=== PATIENT | female | born 1940 | race Caucasian/White ===

== ENCOUNTER 2020-05-27 07:00 | Outpatient (NON) | payer MEDICARE, SELFPAY ==
[2020-05-28 01:24] LABS: SARS-CoV-2 RNA PCR Negative
== END 2020-05-27 07:01 ==
PROVIDERS: PCP Internal Medicine; Visit Provider Nurse Practitioner
DX: Z20.828 Contact with and (suspected) exposure to other viral communicable diseases (principal); R09.89 Other specified symptoms and signs involving the circulatory and respiratory systems
CPT/HCPCS: 87635; C9803; U0003

== ENCOUNTER 2020-08-08 15:36 | Outpatient (CLI) | payer MEDICARE, SELFPAY | END 2020-08-08 15:37 | disposition home or self-care (01) | LOC: ANHCOVIDVC 15:37 | PROVIDERS: PCP Internal Medicine; Visit Provider Internal Medicine | DX: Z23 Encounter for immunization (principal) | CPT/HCPCS: 0001A; 91300 ==

== ENCOUNTER 2020-08-14 09:20 | Outpatient (CLI) | payer MEDICARE, SELFPAY ==
[2020-08-14 16:08] LABS: Basophils Percent Auto 0.6 % (0.2-1.2); Eosinophils Absolute Auto 0.3 K/mm3 (0-0.3); Eosinophils Percent Auto 4.4 % (0-4.4); Hematocrit 42.6 % (37.0-47.0); Hemoglobin 13.7 g/dL (12.0-15.0); Immature Granulocyte Absolute 0.02 K/mm3 (0.00-0.031); Immature Granulocyte Percent A 0.3 % (0-0.5); Lymphocytes Absolute Auto 1.86 K/mm3 (0.9-3.2); Lymphocytes Percent Auto 26.2 % (18.3-44.2); Mean Corpuscular HGB Conc 32.2 g/dl (32-36); Mean Corpuscular Hemoglobin 30.4 pg (26-34); Mean Corpuscular Volume 94.5 fl (80-100); Mean Platelet Volume 11.5 fl (7.4-10.4); Monocytes Absolute Auto 0.6 K/mm3 (0.1-0.6); Monocytes Percent Auto 8.6 % (2.6-8.5); Neutrophils Absolute Auto 4.3 K/mm3 (1.3-6.7); Neutrophils Percent Auto 59.9 % (45.5-73.1); Platelet Count Result 299 k/mm3 (150-375); Red Blood Count 4.51 M/mm3 (4.2-5.4); Red Cell Distribution Width 12.9 % (11.5-14.5); White Blood Count 7.1 K/mm3 (4.5-10.0)
[2020-08-14 16:19] LABS: Alanine Aminotransferase 17 U/L (4-35); Albumin Level 3.5 g/dL (3.5-5.1); Alkaline Phosphatase 63 U/L (38-126); Anion Gap 5 mmol/L (8-16); Aspartate Amino Transferase 27 U/L (14-36); Bilirubin,Total 0.7 mg/dL (0.2-1.3); Blood Urea Nitrogen 19 mg/dL (7-17); Calcium 8.7 mg/dL (8.4-10.2); Carbon Dioxide 27 mmol/L (22-30); Chloride 108 mmol/L (98-107); Cholesterol 236 mg/dL (0-200); Estimated Glomerular Filt Rate 48; Glucose 85 mg/dL (65-105); HDL Direct 59 mg/dL; Potassium 4.3 mmol/L (3.4-5.0); Sodium 140 mmol/L (137-145); Triglycerides 119 mg/dL (<150)
[2020-08-14 16:29] LABS: LDL Cholesterol Direct 124 mg/dL
== END 2020-08-14 09:21 | disposition home or self-care (01) ==
LOC: ANHWCLAB 09:28
PROVIDERS: PCP Internal Medicine; Visit Provider Clinical Nurse Specialist
DX: I10 Essential (primary) hypertension (principal)
CPT/HCPCS: 36415; 80053; 80061; 85025

== ENCOUNTER 2020-08-29 15:26 | Outpatient (CLI) | payer MEDICARE, SELFPAY | END 2020-08-29 15:27 | disposition home or self-care (01) | LOC: ANHCOVIDVC 15:26 | PROVIDERS: PCP Internal Medicine | DX: Z23 Encounter for immunization (principal) | CPT/HCPCS: 0002A; 91300 ==

== ENCOUNTER 2020-09-20 15:53 | Outpatient (CLI) | payer MEDICARE, SELFPAY ==
--- NOTE | ~2020-09-20 | XR_ITS ---
XR finger 1st RT min 2V DATE: 09/20/2020 17:10 INDICATION: Enlarging nodules of the right thumb TECHNIQUE: 4 views COMPARISON: None FINDINGS: There are nodular areas of soft tissue swelling. There is evidence of chronic benign smooth pressure erosion of the mid to distal shaft and neck of th e proximal phalanx anteriorly and posteriorly . No fracture or dislocation, periosteal reaction or bone destruction is evident. There is osteoarthritic change including mild spurring at the interphalangeal joint of the first digi t. IMPRESSION: Multiple nodular soft tissue lesions of the first digit with evidence of chronic pressure erosion on the proximal phalanx Osteoarthritis Reviewed, dictated and finalized at location A. IMPRESSION: Multiple nodular soft tissue lesions of the first digit with eviden ce of chronic pressure erosion on the proximal phalanx Osteoarthritis
== END 2020-09-20 15:54 | disposition home or self-care (01) ==
LOC: ANHIMG 16:02
PROVIDERS: PCP Internal Medicine; Visit Provider Plastic Surgery
DX: M19.041 Primary osteoarthritis, right hand (principal); M79.89 Other specified soft tissue disorders
CPT/HCPCS: 73140

== ENCOUNTER → 2020-10-09 01:16 | Outpatient (CLI) | payer MEDICARE, SELFPAY ==
[2020-10-09 19:16] LABS: SARS-CoV-2 RNA PCR Negative
== END ==
PROVIDERS: PCP Internal Medicine; Visit Provider Plastic Surgery
DX: Z01.812 Encounter for preprocedural laboratory examination (principal); Z20.822 Contact with and (suspected) exposure to COVID-19
CPT/HCPCS: C9803; U0003; U0005

== ENCOUNTER 2020-10-12 01:39 | Day surgery (SDC) | payer MEDICARE, SELFPAY ==
[2020-10-04 09:14] VITALS: BMI 24.5
--- NOTE | 2020-10-12 07:17 | WPDHPUPDATE1 ---
History and Physical Update Update Date/Time: 10/12/20 07:17 History and Physical has been reviewed, including an updated exam of the patient. There are NO changes in the patient's condition. Risks, benefits, and alternatives have been discussed and questions answered. Patient agrees to proceed with procedure.
[2020-10-12 14:30] VITALS: BP 141/87; PULSE 73; RESP 16; TEMP 36.4; O2SAT 99
[2020-10-12 16:15] VITALS: BP 167/107; PULSE 61; RESP 16; O2SAT 95
[2020-10-12] MEDS: LIDO 1%/EPINEPHRINE 1:100,000 50 ML VIAL 30 ML INFILTRATE (16:24)
[2020-10-12 16:25] VITALS: BP 165/102; PULSE 67; RESP 16; O2SAT 97
[2020-10-12 16:35] VITALS: BP 165/96; PULSE 80; RESP 16; O2SAT 95
[2020-10-12 16:45] VITALS: BP 159/100; PULSE 77; RESP 16; O2SAT 95
[2020-10-12 17:00] VITALS: BP 146/83; PULSE 73; RESP 12; O2SAT 97
--- NOTE | 2020-10-12 17:07 | PM.OP ---
Procedure Note - Brief Procedure Note - Brief Date of procedure: 10/12/20 Pre-op diagnosis: enlarging subcutaneous masses of the right thumb Post-op diagnosis: same Procedure performed: 1.5 x 2 cm excision of subcutaneous mass of the dorsal right thumb. Anesthesia: local Surgeon: Ren Flores MD Tourniquet time (min): 21 Drains: No Packing: No Pathology: yes Complications: No immediate complications Condition: stable Disposition: same day
--- NOTE | 2020-10-12 17:09 | PM.PROC ---
Procedure Note - Detailed Date of procedure: 10/12/20 Pre-op diagnosis: enlarging subcutaneous masses of the right thumb Post-op diagnosis: same Procedure performed: Excision 1.5 x 2.5 cm subcutaneous mass of the right dorsal 1st IP joint Description of procedure: The thumb was marked in the holding area. The patient was taken to the operating room and placed supine on the operating table. She was alert and a time-out was held and confirmed. The hand was prepped and draped in usual fashion. The right thumb was blocked with 1% lidocaine with epinephrine. The blue tourniquet was placed at the base of the proximal phalanx. The large group of subcutaneous masses extending to both sides of the extensor tendon were accessed through paralleled dorsal lateral incisions. Upon making the incision the white cartilaginous type mass was noted. This did not have the Gold coloring of a giant cell tumor. This is multi lobulated comprised of firm white spheres approximately 3-4 mm each. The dissection was carried out largely with blunt dissection with scissors cutting were needed. The extensor tendon was not in anyway violated by the surgery or the disease. The disease did not appear to have passed underneath the terminal tendon. The most proximal component of all of this was on the radial side and seemed to be about a [address] down the proximal phalanx relatively volar.. The digital nerves were not identified. The wounds were closed running 5 0 nylon suture in a small compressive thumb bandage was applied. She is discharged with instructions in wound care and follow-up and a prescription for hydrocodone 5/325 6. Anesthesia: local Surgeon: Ren Flores MD Estimated blood loss (mL): 1 Tourniquet time (min): 21 Drains: No Packing: No Pathology: yes Complications: No immediate complications Condition: stable Disposition: same day
== END 2020-10-12 17:22 | disposition home or self-care (01) ==
PROVIDERS: PCP Internal Medicine; Visit Provider Plastic Surgery
PROC: (CPT 26111; principal; 2020-10-12 14:30)
DX: D21.11 Benign neoplasm of connective and other soft tissue of right upper limb, including shoulder (principal); Z85.828 Personal history of other malignant neoplasm of skin; M19.90 Unspecified osteoarthritis, unspecified site; K21.9 Gastro-esophageal reflux disease without esophagitis
CPT/HCPCS: 26111; 88304; 88307; C9803; U0003; U0005

== ENCOUNTER 2021-03-11 16:19 | Observation (INO) | payer MEDICARE, SELFPAY ==
--- NOTE | ~2021-03-11 | XR_ITS ---
EXAMINATION: XR chest 2V DATE: 03/11/2021 17:18 INDICATION: Weakness, nausea and vomiting TECHNIQUE: PA and lateral views of the chest are obtained. COMPARISON: None available FINDINGS: There are airspace opacities of the left lung base. There is no pleural effusion or pneumot horax. The cardiomediastinal silhouette is normal. There is moderate thoracic spondylosis. There is l evoscoliosis and severe spondylosis of the lumbar spine. IMPRESSION: 1. Left basilar airspace opacity, likely pneumonia Reviewed, dictated and finalized at location A.
--- NOTE | 2021-03-11 16:46 | ECG_ITS ---
Measurements Intervals [place] Rate: 82 P: 61 VT: 160 QRS: 25 QRSD: 67 T: 30 QT: 333 QTc: 390 Interpretive Statements SINUS RHYTHM POSSIBLE LEFT ATRIAL ENLARGEMENT BORDERLINE R WAVE PROGRESSION, ANTERIOR LEADS BORDERLINE T WAVE ABNORMALITY- ANTERIOR LEADS BORDERLINE ECG Electronically Signed On 03-11-2021 19:46:25 CDT by Markus Thompson D.O.
[2021-03-11 17:01] VITALS: BP 105/67; PULSE 85; RESP 14; TEMP 37.2; O2SAT 99
[2021-03-11 17:09] LABS: Basophils Absolute Auto 0.1 K/mm3 (0.0-0.1); Basophils Percent Auto 0.4 % (0.2-1.2); Eosinophils Percent Auto 0.1 % (0-4.4); Hematocrit 37.7 % (37.0-47.0); Hemoglobin 12.5 g/dL (12.0-15.0); Immature Granulocyte Absolute 0.15 K/mm3 (0.00-0.031); Immature Granulocyte Percent A 1.1 % (0-0.5); Lymphocytes Absolute Auto 1.04 K/mm3 (0.9-3.2); Lymphocytes Percent Auto 7.7 % (18.3-44.2); Mean Corpuscular HGB Conc 33.2 g/dl (32-36); Mean Corpuscular Hemoglobin 30.9 pg (26-34); Mean Corpuscular Volume 93.1 fl (80-100); Monocytes Absolute Auto 1.3 K/mm3 (0.1-0.6); Monocytes Percent Auto 9.6 % (2.6-8.5); Neutrophils Percent Auto 81.1 % (45.5-73.1); Platelet Count Result 200 k/mm3 (150-375); Red Blood Count 4.05 M/mm3 (4.2-5.4); Red Cell Distribution Width 13.4 % (11.5-14.5); White Blood Count 13.6 K/mm3 (4.5-10.0)
[2021-03-11 17:19] LABS: Alanine Aminotransferase 24 U/L (4-35); Albumin Level 3.6 g/dL (3.5-5.1); Alkaline Phosphatase 82 U/L (38-126); Anion Gap 10 mmol/L (8-16); Aspartate Amino Transferase 26 U/L (14-36); Bilirubin,Total 0.7 mg/dL (0.2-1.3); Blood Urea Nitrogen 25 mg/dL (7-17); Calcium 8.3 mg/dL (8.4-10.2); Carbon Dioxide 25 mmol/L (22-30); Chloride 98 mmol/L (98-107); Estimated CRCL calculation 23 ml/min; Estimated Glomerular Filt Rate 40; Glucose 124 mg/dL (65-110); Sodium 133 mmol/L (137-145)
[2021-03-11 17:45] LABS: Add Urine Microscopic? YES; Appearance Urine Cloudy (Clear); Bilirubin Urine Negative (Negative); Blood Urine 2+ (Negative); Color Urine Yellow (Yellow); Glucose Urine UA Negative (Negative); Ketones Urine Trace mg/dL (Negative); Leukocyte Esterase Ur Negative LEU/UL (Negative); Mucus Urine Rare /lpf; Nitrate Urine Negative (Negative); Protein Urine 3+ mg/dL (Negative); Squamous Epithelial Cell Urine Occasional /hpf (Few); Urobilinogen Urine Negative mg/dL (<2.0)
[2021-03-11 20:16] VITALS: BP 143/79; PULSE 102; TEMP 37.3; O2SAT 96
--- NOTE | 2021-03-11 20:18 | ED.WEAKNESS ---
HPI - Weakness General Chief complaint: Weakness Stated complaint: weakness Time Seen by Provider: 03/11/21 20:14 Source: RN notes reviewed History of Present Illness HPI Narrative: Patient presents emergency department from home for weakness. Patient states symptoms began on March 06. States that she has had a fever up to 101 ?F as well as the cough has been productive of yellow sputum patient also notes nausea and vomiting as well as mild diarrhea she notes generalized fatigue. She denies having any chest pain patient denies any current abdominal pain she states she has had her Covid vaccination denies any other symptoms at this time Related Data Home Medications Medication Instructions Recorded Confirmed calcium-vitamin D3-vitamin K 500 1 tablet PO DAILY tablet 01/03/20 02/22/21 mg-500 unit-40 mcg chewable tablet fexofenadine [Elli] 180 mg PO DAILY 10/04/20 02/22/21 Allergies Allergy/AdvReac Type Severity Reaction Status Date / Time No Known Allergies Allergy Verified 03/11/21 20:14 Review of Systems Review of Systems: Gen.: See HPI Eyes: Denies eye pain or visual change ENT: Denies congestion Respiratory: Reports cough CV: Denies chest pain or palpitations GI: Denies abdominal pain. Reports nausea vomiting diarrhea Musculoskeletal: Denies back pain or muscle pain Neuro: Reports generalized weakness Skin: Denies rash Except as documented, all other systems reviewed and negative [facility] Past Medical History Medical History Allergies Cartilage disorder CKD (chronic kidney disease), stage III Colon polyps GERD (gastroesophageal reflux disease) Hypertension Migraine Osteoarthritis Post-menopausal Vitamin deficiency Family History Family History (Updated 08/19/18 @ 16:07 by DOCTOR UNKNOWN) Mother Family history of osteoporosis Family history of Alzheimer's disease Father Family history of transient ischemic attacks Social History Social History Smoking status: Never smoker Alcohol intake: current Substance use: never Additional living arrangements comments: HUSB Spiritual care concerns: No Exam Narrative: APPEARANCE: No acute distress, nontoxic, resting in bed EYES: EOMI HEENT: Normocephalic, atraumatic, RESPIRATORY: No respiratory distress coarse breath sounds left lung h[place]go no wheezing CARDIOVASCULAR: Regular rate and rhythm without murmurs rubs or gallops. ABDOMINAL: Soft, nontender, nondistended, no rebound or guarding MUSCULOSKELETAl: Moves all extremities. No clubbing, cyanosis or edema. NEURO: Awake and alert. Following commands, speech normal, no focal deficits SKIN:: Warm, dry. No rashes lesions or abrasions PSYCHIATRIC: Normal affect/mood, Course Course Emergency Course: Discussed with Dr. Chaudhary presentation work-up agrees with admission at this time. Discussed will start antibiotics. Dr. Chaudhary does not feel patient requires testing for Covid at this time Discussed with patient and family results of workup and diagnosis. Discussed need for admission. Patient and family understand and agree to current treatment plan Vital Signs Vital signs: Vital Signs Temperature 98.9 F 03/11/21 17:01 Pulse Rate 85 03/11/21 17:01 Respiratory Rate 14 03/11/21 17:01 Blood Pressure 105/67 03/11/21 17:01 Pulse Oximetry 99 03/11/21 17:01 Temperature 99.2 F 03/11/21 20:16 Pulse Rate 102 H 03/11/21 20:16 Respiratory Rate 14 03/11/21 17:01 Blood Pressure 143/79 H 03/11/21 20:16 Pulse Oximetry 96 03/11/21 20:16 MDM - Weakness Lab Data Result diagrams: 03/11/21 16:58 03/11/21 16:58 Labs: Lab Results 03/11/21 03/11/21 03/11/21 Range/Units 16:58 16:58 17:26 WBC 13.6 H (4.5-10.0) K/mm3 RBC 4.05 L (4.2-5.4) M/mm3 Hgb 12.5 (12.0-15.0) g/dL Hct 37.7 (37.0-47.0) % MCV 93.
--- NOTE | 2021-03-11 20:23 | PM.IMHP ---
H&P: HPI History of Present Illness Date/Time: 03/11/21 20:23 Chief Complaint: Generalized malaise. Narrative: This is a 80-year-old female with past medical history significant for hypertension, chronic knee kidney disease, gastroesophageal reflux disease, seasonal allergies. Patient presented today due to generalized malaise body aches and pain ,chills, poor appetite cough productive of green sputum shortness of breath this has been going on for the last 3-4 she took NyQuil at home did not help. She has been in her usual state of health up until this she denies any leg swelling ,PND ,orthopnea, chest pain, nausea, vomiting or diarrhea or abdominal pain. Preliminary workup was significant for chest x-ray with left lower lobe infiltrate a white count of 13,000. Review of Systems Review of Systems: Cough productive of greenish sputum generalized malaise body aches and pains fevers and chills Constitutional: Constitutional: Reports chills, Reports lethargy, Reports malaise, Denies night sweats and Reports poor appetite Eyes: Eyes: Reports change in vision ENT: Denies dysphagia, Denies nasal congestion, Denies nasal discharge, Denies nasal obstruction and Denies odynophagia Cardiovascular: Cardiovascular: Denies lightheadedness, Denies radiating jaw, neck or arm pain, Denies palpitations, Denies dyspnea, Denies dyspnea on exertion and Denies orthopnea Respiratory: Respiratory: Reports cough, Reports excessive phlegm production and Reports dyspnea Gastrointestinal: Gastrointestinal: Denies dyspepsia, Denies heartburn, Denies diarrhea, Denies nausea and Denies vomiting Genitourinary: Genitourinary: Reports no additional female genitourinary complaints Musculoskeletal: Musculoskeletal: Reports myalgias Integumentary/Breasts: Skin/Breast: Reports system reviewed and no additional complaints, except as docu Neurologic: Reports system reviewed and no additional complaints, except as documented Psychiatric: Psychiatric: Reports no additional psychiatric complaints Endocrine: Endocrine: Reports no additional endocrine complaints Hematologic/Lymphatic: Hematologic/Lymphatic: Reports no additional hematologic/lymphatic complaints Allergic/Immunologic: Allergic/Immunologic: Reports no additional allergic/immunologic complaints [facility] Past Medical History Medical History (Updated 03/12/21 @ 01:11 by Faustino Rothman MD) Allergies Cartilage disorder CKD (chronic kidney disease), stage III Colon polyps GERD (gastroesophageal reflux disease) Hypertension Migraine Osteoarthritis Post-menopausal Vitamin deficiency Family History Family History (Updated 03/11/21 @ 23:50 by Yasmin Hay RN) Mother Family history of osteoporosis Family history of Alzheimer's disease Father Family history of transient ischemic attacks Cerebrovascular accident Social History Social History Smoking status: Never smoker Alcohol intake: former Substance use: never Additional living arrangements comments: HUSB Spiritual care concerns: No Meds Home Medications and Allergies Home Medications Medication Instructions Recorded Confirmed Type calcium-vitamin D3-vitamin K 500 1 tablet PO DAILY tablet 01/03/20 03/11/21 History mg-500 unit-40 mcg chewable tablet fexofenadine [Elli] 180 mg PO DAILY 10/04/20 03/11/21 History pantoprazole 40 mg tablet,delayed 40 mg PO DAILY #60 tablet 12/29/20 03/11/21 Rx release losartan 50 mg tablet 50 mg PO DAILY #90 tablet 02/22/21 03/11/21 Rx acetaminophen [Tylenol Arthritis] 1,300 mg PO Q8H PRN 03/11/21 03/11/21 History azelastine 2 spray INTRANASAL DAILY PRN 03/11/21 03/11/21 History Allergies Allergy/AdvReac Type Severity Reaction Status Date / Time No Known Allergies Allergy Verified 03/11/21 22:41 Vital Signs Vital Signs - 24 hr 03/11/21 17:01 03/11/21 20:16 Temperature 98.9 F 99.2 F Pulse Rate 85 102 H
[2021-03-11] MEDS: SODIUM CHLORIDE 0.9% IV 1,000 ML 999 ML IV CONT (21:06)
[2021-03-11 21:21] LABS: Lactic Acid Reflex 1.1 mmol/L (0.7-2.1)
[2021-03-11 21:33] VITALS: BP 129/77; PULSE 66; RESP 18; O2SAT 99
[2021-03-11] MEDS: ONDANSETRON INJ 4 MG/2 ML VIAL IV PUSH (22:14)
[2021-03-11 22:15] VITALS: BP 100/68; PULSE 70; RESP 16; O2SAT 99
[2021-03-11 22:30] VITALS: BP 110/71; PULSE 92; RESP 20; TEMP 37.1; O2SAT 93; BMI 23.3
--- NOTE | 2021-03-11 22:41 | ADMGEN ---
This patient, Jillian Gibson, was admitted to [address] [facility] Surg Room 332-01at 2230. Patient/family oriented to hospital policies and general routines including ID bracelet, bed and alarms, visiting hours, pain management, procedures, bathroom and other care routines, personal items, smoking policy, room service/diet, and visiting hours. Information on how to activate the Rapid Response Team has been discussed. Patient/Family are encouraged to report perceived risks to care and to ask questions if they do not understand what they are told or what they should do.
[2021-03-12] VITALS (13 sets, daily range): BP systolic 121–130; BP diastolic 67–80; PULSE 75–96; RESP 16–20; TEMP 37.1–39.1; O2SAT 93–96
[2021-03-12] MEDS: SODIUM CHLORIDE 0.9% IV 1,000 ML 125 ML IV CONT (03:15)
[2021-03-12] MEDS: ACETAMINOPHEN 500 MG TABLET 1000 MG PO (06:02)
[2021-03-12 06:08] LABS: Basophils Percent Auto 0.4 % (0.2-1.2); Eosinophils Percent Auto 0.2 % (0-4.4); Hematocrit 33.7 % (37.0-47.0); Hemoglobin 11.3 g/dL (12.0-15.0); Immature Granulocyte Absolute 0.05 K/mm3 (0.00-0.031); Immature Granulocyte Percent A 0.5 % (0-0.5); Lymphocytes Absolute Auto 0.95 K/mm3 (0.9-3.2); Lymphocytes Percent Auto 9.5 % (18.3-44.2); Mean Corpuscular HGB Conc 33.5 g/dl (32-36); Mean Corpuscular Hemoglobin 30.5 pg (26-34); Mean Corpuscular Volume 91.1 fl (80-100); Mean Platelet Volume 10.9 fl (7.4-10.4); Monocytes Absolute Auto 1.1 K/mm3 (0.1-0.6); Monocytes Percent Auto 11.1 % (2.6-8.5); Neutrophils Absolute Auto 7.9 K/mm3 (1.3-6.7); Neutrophils Percent Auto 78.3 % (45.5-73.1); Platelet Count Result 180 k/mm3 (150-375); Red Cell Distribution Width 13.5 % (11.5-14.5)
[2021-03-12 06:26] LABS: Alanine Aminotransferase 19 U/L (4-35); Albumin Level 3.1 g/dL (3.5-5.1); Alkaline Phosphatase 73 U/L (38-126); Anion Gap 7 mmol/L (8-16); Aspartate Amino Transferase 27 U/L (14-36); Bilirubin,Total 0.6 mg/dL (0.2-1.3); Blood Urea Nitrogen 21 mg/dL (7-17); Calcium 7.4 mg/dL (8.4-10.2); Carbon Dioxide 23 mmol/L (22-30); Chloride 101 mmol/L (98-107); Estimated CRCL calculation 26 ml/min; Estimated Glomerular Filt Rate 48; Glucose 100 mg/dL (65-110); Sodium 131 mmol/L (137-145)
[2021-03-12] MEDS: LORATADINE 10 MG TABLET PO (09:19)
[2021-03-12] MEDS: PANTOPRAZOLE 40 MG TABLET PO (09:19)
[2021-03-12] MEDS: ENOXAPARIN 30 MG/0.3 ML SYRINGE SUB-Q (09:19)
[2021-03-12] MEDS: ALBUTEROL SULFATE NEB 2.5 MG/0.5 ML INH INHALATION ×3 (09:22→21:23)
[2021-03-12] MEDS: IPRATROPIUM BR 0.02% INH SOLN 0.5 MG/2.5 ML VIAL INHALATION ×3 (09:22→21:23)
[2021-03-12] MEDS: LOSARTAN POTASSIUM 50 MG TABLET PO (10:27)
[2021-03-13 00:41] VITALS: PULSE 75; RESP 18; O2SAT 94
[2021-03-13 02:14] VITALS: PULSE 74; RESP 18
[2021-03-13] MEDS: ALBUTEROL SULFATE NEB 2.5 MG/0.5 ML INH INHALATION ×2 (02:15→09:28)
[2021-03-13] MEDS: IPRATROPIUM BR 0.02% INH SOLN 0.5 MG/2.5 ML VIAL INHALATION ×2 (02:15→09:28)
[2021-03-13 02:28] VITALS: PULSE 78; RESP 18
[2021-03-13 06:00] VITALS: BP 126/76; PULSE 96; RESP 18; TEMP 36.6; O2SAT 96
--- NOTE | 2021-03-13 07:12 | PM.DS ---
DS: Admitting Diagnosis Discharge Date 7:14 a.m. on March 13, 2021 Admitting Diagnosis Left basilar pneumonia DS: Summary Hospital Course Hospital Course: See discharge summary below Time Spent with Patient Time attestation: Total time spent providing and/or coordinating discharge services: START OF DOCTOR SOLANGE DISCHARGE SUMMARY Date of Admission: March 11, 2020 Date of Discharge: 7:13 a.m. on March 13, 2021 Primary Diagnosis: Left basilar pneumonia Secondary Diagnosis: Hypertension GERD Seasonal allergies History of migraine Osteoarthritis Anemia Hyponatremia Chronic kidney disease Consultations: None Disposition: The patient will be advised follow-up with her primary care physician 5-7 days post discharge for post hospitalization evaluation The patient is advised follow-up with Nephrology 1 month post discharge or as directed for history of chronic kidney disease The patient required check a BMP 5 days post discharge for diagnosis hyponatremia Discharge Medications: Doxycycline 100 mg p.o. b.i.d.. Quantity 10. 0 refills As last in 0.15% nasal spray: 2 puffs each nares daily p.r.n. symptoms of seasonal allergies Multivitamin 1 tab p.o. daily Elli 180 mg p.o. daily Cozaar 50 mg p.o. daily Protonix 40 mg p.o. daily END OF DOCTOR TERESA?David DISCHARGE SUMMARY DS: Data Data Completed and Pending Labs on day of discharge: Preliminary micro results at discharge 03/11/21 21:03 Blood Culture - Preliminary Blood Discharge Plan Discharge Discharging Clinician: Dr. Blanchard Patient Disposition: Home, Self-Care Activity: as tolerated Diet: renal Discharge Instructions: The patient is advised follow-up with her primary care physician 5-7 days post discharge for post hospitalization evaluation The patient is advised follow-up with Nephrology 1 month post discharge or as directed for her history of chronic kidney disease Patient Instructions: Antibiotic Form, Pain Management in Older Adults (DC) Stand Alone Forms: General Discharge Information Follow-up/Referrals: Shelli Blanchard DO [Physician] - Discharge Medications: New doxycycline hyclate 100 mg capsule 100 mg PO DAILY Qty: 10 RF: 0 Continued losartan 50 mg tablet 50 mg PO DAILY Qty: 90 RF: 0 calcium-vitamin D3-vitamin K 500-500-40 mg-unit-mcg tablet,chewable 1 tablet PO DAILY RF: 0 azelastine 205.5 mcg (0.15 %) spray,non-aerosol 2 spray intranasal DAILY PRN (Reason: Nasal Congestion) RF: 0 fexofenadine [Elli] 180 mg Tablet 180 mg PO DAILY RF: 0 pantoprazole 40 mg tablet,delayed release (DR/EC) 40 mg PO DAILY Qty: 60 RF: 3 Discontinued acetaminophen [Tylenol Arthritis] 650 mg Tablet Extended Release 1,300 mg PO Q8H PRN (Reason: Pain (Scale Score 1-3)) RF: 0 Date of admission: 03/11/21 20:20 Primary Care Provider: Jovani Mcghee Admitting Provider: Faustino Rothman V. Attending physician on admission: Faustino Rothman V. Condition: Stable
[2021-03-13] MEDS: ENOXAPARIN 30 MG/0.3 ML SYRINGE SUB-Q (08:26)
[2021-03-13] MEDS: LOSARTAN POTASSIUM 50 MG TABLET PO (08:26)
[2021-03-13] MEDS: LORATADINE 10 MG TABLET PO (08:26)
[2021-03-13] MEDS: PANTOPRAZOLE 40 MG TABLET PO (08:26)
[2021-03-13 09:23] LABS: Iron 12 ug/dL (37-170); Percent Iron Saturation 6 % (20-50)
[2021-03-13 09:31] VITALS: PULSE 85; RESP 16
[2021-03-13 09:36] VITALS: PULSE 90; RESP 16
== END 2021-03-13 10:00 | disposition home or self-care (01) ==
LOC: ANHED 20:30 → ANH3MEDSUR 23:54
PROVIDERS: Emergency Medicine; Admitting Provider Internal Medicine; Emergency Provider Emergency Medicine; PCP Internal Medicine; Visit Provider Internal Medicine
DX: J18.9 Pneumonia, unspecified organism (principal); R53.81 Other malaise; I12.9 Hypertensive chronic kidney disease with stage 1 through stage 4 chronic kidney disease, or unspecified chronic kidney disease; N18.30 Chronic kidney disease, stage 3 unspecified; K21.9 Gastro-esophageal reflux disease without esophagitis; R06.02 Shortness of breath; D64.9 Anemia, unspecified
CPT/HCPCS: 36415; 71046; 80053; 81001; 82728; 83540; 83550; 83605; 85025; 87040; 87086; 87088; 93005; 94640; 96361; 96365; 96366; 96368; 96372; 96375; 99285; A9270; G0378; J0456; J0696; J1650; J2405; J7030

== ENCOUNTER 2021-03-19 09:35 | Outpatient (CLI) | payer MEDICARE, SELFPAY ==
[2021-03-19 09:53] LABS: Basophils Absolute Auto 0.1 K/mm3 (0.0-0.1); Basophils Percent Auto 0.7 % (0.2-1.2); Eosinophils Absolute Auto 0.4 K/mm3 (0-0.3); Eosinophils Percent Auto 3.3 % (0-4.4); Hematocrit 38.9 % (37.0-47.0); Hemoglobin 12.6 g/dL (12.0-15.0); Immature Granulocyte Absolute 0.44 K/mm3 (0.00-0.031); Immature Granulocyte Percent A 4.1 % (0-0.5); Lymphocytes Percent Auto 19.7 % (18.3-44.2); Mean Corpuscular HGB Conc 32.4 g/dl (32-36); Mean Corpuscular Hemoglobin 30.6 pg (26-34); Mean Corpuscular Volume 94.4 fl (80-100); Mean Platelet Volume 9.9 fl (7.4-10.4); Neutrophils Absolute Auto 6.7 K/mm3 (1.3-6.7); Neutrophils Percent Auto 63.2 % (45.5-73.1); Platelet Count Result 411 k/mm3 (150-375); Red Blood Count 4.12 M/mm3 (4.2-5.4); Red Cell Distribution Width 13.5 % (11.5-14.5); White Blood Count 10.7 K/mm3 (4.5-10.0)
[2021-03-19 10:08] LABS: Alanine Aminotransferase 20 U/L (4-35); Albumin Level 3.6 g/dL (3.5-5.1); Alkaline Phosphatase 71 U/L (38-126); Anion Gap 8 mmol/L (8-16); Aspartate Amino Transferase 29 U/L (14-36); Bilirubin,Total 0.5 mg/dL (0.2-1.3); Blood Urea Nitrogen 14 mg/dL (7-17); Calcium 8.9 mg/dL (8.4-10.2); Carbon Dioxide 30 mmol/L (22-30); Chloride 102 mmol/L (98-107); Cholesterol 175 mg/dL (0-200); Estimated Glomerular Filt Rate 53; Glucose 90 mg/dL (65-110); HDL Direct 35 mg/dL; Sodium 140 mmol/L (137-145); Triglycerides 142 mg/dL (<150)
[2021-03-19 10:19] LABS: LDL Cholesterol Direct 84 mg/dL
[2021-03-19 10:46] LABS: Vitamin D 25 Hydroxy 33.7 ng/mL
== END 2021-03-19 09:36 | disposition home or self-care (01) ==
PROVIDERS: PCP Internal Medicine; Visit Provider Nurse Practitioner
DX: I10 Essential (primary) hypertension (principal); E55.9 Vitamin D deficiency, unspecified
CPT/HCPCS: 36415; 80053; 80061; 82306; 85025

== ENCOUNTER 2021-03-21 13:42 | Outpatient (CLI) | payer MEDICARE, SELFPAY ==
--- NOTE | ~2021-03-21 | XR_ITS ---
XR chest 2V DATE: 03/21/2021 14:00 INDICATION: Pneumonia follow-up TECHNIQUE: PA and lateral views COMPARISON: 03/11/2021 PA and lateral chest FINDINGS: There is left lower lobe patchy infiltrate, mildly improved since 03/11/2021. No pleural effusion or pulmonary vascular congestion or pneumothorax. Heart size is within normal ran ge. There is mild aortic calcification and tortuosity. No hilar or mediastinal enlargement is evident . Prominent thoracic and lumbar scoliosis. Diffuse osteopenia. IMPRESSION: Patchy left lower lobe infiltrate, mildly improved since 03/28/2021 Reviewed, dictated and finalized at location B.
== END 2021-03-21 13:43 | disposition home or self-care (01) ==
LOC: ANHIMG 13:43
PROVIDERS: PCP Internal Medicine; Visit Provider Nurse Practitioner
DX: J18.9 Pneumonia, unspecified organism (principal); M41.9 Scoliosis, unspecified
CPT/HCPCS: 71046

== ENCOUNTER 2021-04-02 11:54 | Outpatient (CLI) | payer MEDICARE, SELFPAY ==
[2021-04-02 12:42] LABS: Basophils Absolute Auto 0.1 K/mm3 (0.0-0.1); Eosinophils Absolute Auto 0.3 K/mm3 (0-0.3); Eosinophils Percent Auto 4.3 % (0-4.4); Hematocrit 40.7 % (37.0-47.0); Hemoglobin 13.1 g/dL (12.0-15.0); Immature Granulocyte Absolute 0.01 K/mm3 (0.00-0.031); Immature Granulocyte Percent A 0.2 % (0-0.5); Lymphocytes Absolute Auto 1.83 K/mm3 (0.9-3.2); Lymphocytes Percent Auto 31.4 % (18.3-44.2); Mean Corpuscular HGB Conc 32.2 g/dl (32-36); Mean Corpuscular Hemoglobin 30.9 pg (26-34); Mean Platelet Volume 10.8 fl (7.4-10.4); Monocytes Absolute Auto 0.6 K/mm3 (0.1-0.6); Monocytes Percent Auto 10.8 % (2.6-8.5); Neutrophils Percent Auto 52.3 % (45.5-73.1); Platelet Count Result 299 k/mm3 (150-375); Red Blood Count 4.24 M/mm3 (4.2-5.4); Red Cell Distribution Width 13.6 % (11.5-14.5); White Blood Count 5.8 K/mm3 (4.5-10.0)
[2021-04-02 13:22] LABS: Iron 71 ug/dL (37-170)
[2021-04-02 13:33] LABS: Percent Iron Saturation 25 % (20-50)
[2021-04-02 16:03] LABS: Creatinine Urine 351.2 mg/dL; MALB Creatinine Ratio 8.5 mg/g (0-30)
== END 2021-04-02 11:55 | disposition home or self-care (01) ==
PROVIDERS: PCP Internal Medicine; Visit Provider Nurse Practitioner
DX: J18.9 Pneumonia, unspecified organism (principal); N18.31 Chronic kidney disease, stage 3a; R79.89 Other specified abnormal findings of blood chemistry
CPT/HCPCS: 36415; 82043; 82728; 83540; 83550; 85025

== ENCOUNTER 2021-05-17 13:21 | Outpatient (CLI) | payer MEDICARE, SELFPAY ==
[2021-05-17 14:35] LABS: Hemoglobin 13.3 g/dL (12.0-15.0); Mean Corpuscular HGB Conc 32.4 g/dl (32-36); Mean Corpuscular Hemoglobin 30.4 pg (26-34); Mean Corpuscular Volume 93.6 fl (80-100); Mean Platelet Volume 10.9 fl (7.4-10.4); Platelet Count Result 265 k/mm3 (150-375); Red Blood Count 4.38 M/mm3 (4.2-5.4); Red Cell Distribution Width 13.2 % (11.5-14.5); White Blood Count 7.2 K/mm3 (4.5-10.0)
[2021-05-17 14:49] LABS: Albumin Level 3.7 g/dL (3.5-5.1); Anion Gap 10 mmol/L (8-16); Blood Urea Nitrogen 21 mg/dL (7-17); Calcium 8.7 mg/dL (8.4-10.2); Carbon Dioxide 26 mmol/L (22-30); Chloride 105 mmol/L (98-107); Estimated Glomerular Filt Rate 43; Glucose 129 mg/dL (65-110); Phosphorus 4.4 mg/dL (2.5-4.5); Potassium 3.8 mmol/L (3.4-5.0); Sodium 141 mmol/L (137-145)
[2021-05-17 14:51] LABS: Creatinine Urine 42.8 mg/dL; Total Protein Urine Random 11 mg/dL; Ur Ttl Prot Creatinine Ratio 0.26 mg/mg (0-0.20)
[2021-05-17 14:53] LABS: Add Urine Microscopic? YES; Appearance Urine Clear (Clear); Bilirubin Urine Negative (Negative); Blood Urine Negative (Negative); Color Urine Straw (Yellow); Glucose Urine UA Negative (Negative); Ketones Urine Negative (Negative); Leukocyte Esterase Ur Trace LEU/UL (NEGATIVE); Nitrate Urine Negative (Negative); Protein Urine Negative (Negative); RBC Urine 0-2 /hpf (0-2); Specific Grav Ur 1.006 (1.001-1.035); Urobilinogen Urine Negative mg/dL (<2.0); WBC Urine 0-3 /hpf (0-3)
[2021-05-17 14:56] LABS: Complement C3 110 mg/dL (88-165)
[2021-05-17 15:01] LABS: Parathyroid Intact 28.3 pg/mL (7.5-53.5)
[2021-05-17 15:15] LABS: Erythrocyte Sedimentation Rate 17 mm/hr (0-20)
[2021-05-20 10:52] LABS: Kappa\\Lambda Light Chains 0.29 (0.26-1.65)
[2021-05-20 20:45] LABS: Complement Total CH50 >60 U/mL (31-60)
== END 2021-05-17 13:22 | disposition home or self-care (01) ==
LOC: ANHLAB 13:31
PROVIDERS: PCP Internal Medicine; Visit Provider Internal Medicine Nephrology
DX: N18.31 Chronic kidney disease, stage 3a (principal)
CPT/HCPCS: 36415; 80069; 81001; 82570; 83883; 83970; 84156; 85027; 85652; 86038; 86160; 86162; 86334

== ENCOUNTER 2021-05-21 11:06 | Outpatient (CLI) | payer MEDICARE, SELFPAY ==
[2021-05-25 12:18] LABS: Albumin 21 %; Creat 24 Hr 0.87 g/24 h (0.50-2.15); Measured Kappa Chains <1.00 mg/dL (<2.00); Measured Lambda Chains 2.35 mg/dL (<2.00); Pro/Creat Ratio 153 mg/g creat (<=114); Total Lambda Chains 44.65 mg/24 h
[2021-05-25 15:12] LABS: Protein,total, 24 Hr Ur 133 mg/24h
== END 2021-05-21 11:07 | disposition home or self-care (01) ==
PROVIDERS: PCP Internal Medicine; Visit Provider Internal Medicine Nephrology
DX: N18.31 Chronic kidney disease, stage 3a (principal)
CPT/HCPCS: 86335

== ENCOUNTER 2021-07-30 12:08 | Outpatient (CLI) | payer MEDICARE, SELFPAY ==
[2021-07-30 13:38] LABS: Basophils Absolute Auto 0.1 K/mm3 (0.0-0.1); Basophils Percent Auto 0.6 % (0.2-1.2); Eosinophils Absolute Auto 0.3 K/mm3 (0-0.3); Eosinophils Percent Auto 3.2 % (0-4.4); Hematocrit 44.4 % (37.0-47.0); Hemoglobin 13.8 g/dL (12.0-15.0); Immature Granulocyte Absolute 0.02 K/mm3 (0.00-0.031); Immature Granulocyte Percent A 0.3 % (0-0.5); Lymphocytes Absolute Auto 2.08 K/mm3 (0.9-3.2); Lymphocytes Percent Auto 26.7 % (18.3-44.2); Mean Corpuscular HGB Conc 31.1 g/dl (32-36); Mean Corpuscular Volume 96.5 fl (80-100); Mean Platelet Volume 11.2 fl (7.4-10.4); Monocytes Absolute Auto 0.7 K/mm3 (0.1-0.6); Monocytes Percent Auto 8.6 % (2.6-8.5); Neutrophils Absolute Auto 4.7 K/mm3 (1.3-6.7); Neutrophils Percent Auto 60.6 % (45.5-73.1); Platelet Count Result 294 k/mm3 (150-375); Red Cell Distribution Width 13.5 % (11.5-14.5); White Blood Count 7.8 K/mm3 (4.5-10.0)
[2021-07-30 16:39] LABS: Alanine Aminotransferase 16 U/L (4-35); Albumin Level 4.2 g/dL (3.5-5.1); Alkaline Phosphatase 73 U/L (38-126); Anion Gap 6 mmol/L (8-16); Aspartate Amino Transferase 53 U/L (14-36); Bilirubin,Total 0.7 mg/dL (0.2-1.3); Blood Urea Nitrogen 18 mg/dL (7-17); Calcium 9.6 mg/dL (8.4-10.2); Carbon Dioxide 30 mmol/L (22-30); Chloride 103 mmol/L (98-107); Estimated Glomerular Filt Rate 48; Glucose 73 mg/dL (65-110); Potassium 4.6 mmol/L (3.4-5.0); Sodium 139 mmol/L (137-145)
[2021-07-30 16:49] LABS: Immunoglobulin A 210 mg/dL (70-400); Immunoglobulin G 1065 mg/dL (700-1600); Immunoglobulin M 40 mg/dL (40-230)
[2021-08-01 12:13] LABS: Beta-2-Microglobulin 2.59 mg/L (<=2.51)
[2021-08-01 19:31] LABS: Kappa\\Lambda Light Chains 0.19 (0.26-1.65); Lambda Light Chain 67.3 mg/L (5.7-26.3)
[2021-08-01 22:42] LABS: Abnormal Protein Band 1 1.1 g/dL; Albumin 3.5 g/dL (3.8-4.8); Alpha 1 Globulin 0.3 g/dL (0.2-0.3); Alpha 2 Globulin 0.9 g/dL (0.5-0.9); Beta 1 Globulin 1.3 g/dL (0.4-0.6); Gamma Globulin 0.5 g/dL (0.8-1.7); Protein, Total 6.8 g/dL (6.1-8.1)
== END 2021-07-30 12:09 | disposition home or self-care (01) ==
LOC: ANHLAB 12:09
PROVIDERS: PCP Internal Medicine; Visit Provider Internal Medicine Hematology & Oncology
DX: D47.2 Monoclonal gammopathy (principal)
CPT/HCPCS: 36415; 80053; 82232; 82784; 83883; 84155; 84165; 85025

== ENCOUNTER 2021-11-07 12:40 | Outpatient (CLI) | payer MEDICARE, SELFPAY ==
[2021-11-07 13:32] LABS: Basophils Absolute Auto 0.1 K/mm3 (0.0-0.1); Basophils Percent Auto 0.6 % (0.2-1.2); Eosinophils Absolute Auto 0.2 K/mm3 (0-0.3); Eosinophils Percent Auto 2.2 % (0-4.4); Hematocrit 42.2 % (37.0-47.0); Hemoglobin 13.4 g/dL (12.0-15.0); Immature Granulocyte Absolute 0.03 K/mm3 (0.00-0.031); Immature Granulocyte Percent A 0.3 % (0-0.5); Lymphocytes Absolute Auto 2.36 K/mm3 (0.9-3.2); Lymphocytes Percent Auto 24.1 % (18.3-44.2); Mean Corpuscular HGB Conc 31.8 g/dl (32-36); Mean Corpuscular Hemoglobin 30.8 pg (26-34); Mean Platelet Volume 10.3 fl (7.4-10.4); Monocytes Absolute Auto 0.7 K/mm3 (0.1-0.6); Monocytes Percent Auto 7.6 % (2.6-8.5); Neutrophils Absolute Auto 6.4 K/mm3 (1.3-6.7); Neutrophils Percent Auto 65.2 % (45.5-73.1); Platelet Count Result 286 k/mm3 (150-375); Red Blood Count 4.35 M/mm3 (4.2-5.4); White Blood Count 9.8 K/mm3 (4.5-10.0)
[2021-11-07 13:42] LABS: Albumin Level 3.8 g/dL (3.5-5.1); Anion Gap 6 mmol/L (8-16); Blood Urea Nitrogen 19 mg/dL (7-17); Calcium 8.9 mg/dL (8.4-10.2); Carbon Dioxide 30 mmol/L (22-30); Chloride 104 mmol/L (98-107); Estimated Glomerular Filt Rate 48; Glucose 82 mg/dL (65-110); Phosphorus 4.9 mg/dL (2.5-4.5); Potassium 4.3 mmol/L (3.4-5.0); Sodium 140 mmol/L (137-145)
[2021-11-07 13:57] LABS: Creatinine Urine 60.8 mg/dL; Total Protein Urine Random 10 mg/dL; Ur Ttl Prot Creatinine Ratio 0.16 mg/mg (0-0.20)
[2021-11-09 10:56] LABS: Immunoglobulin A 195 mg/dL (70-320); Immunoglobulin G 1258 mg/dL (600-1540); Immunoglobulin M 40 mg/dL (50-300)
[2021-11-10 02:41] LABS: Kappa\\Lambda Light Chains 0.19 (0.26-1.65); Lambda Light Chain 72.1 mg/L (5.7-26.3)
[2021-11-11 15:56] LABS: Abnormal Protein Band 1 1.1 g/dL; Albumin 3.7 g/dL (3.8-4.8); Alpha 1 Globulin 0.3 g/dL (0.2-0.3); Alpha 2 Globulin 0.8 g/dL (0.5-0.9); Beta 1 Globulin 1.4 g/dL (0.4-0.6); Gamma Globulin 0.5 g/dL (0.8-1.7); Protein, Total 6.9 g/dL (6.1-8.1)
== END 2021-11-07 12:41 | disposition home or self-care (01) ==
PROVIDERS: PCP Internal Medicine; Referring Provider Internal Medicine Hematology & Oncology; Visit Provider Internal Medicine Nephrology
DX: N18.31 Chronic kidney disease, stage 3a (principal)
CPT/HCPCS: 36415; 80069; 82570; 82784; 83883; 84155; 84156; 84165; 85025

== ENCOUNTER 2021-11-13 10:30 | Outpatient (RCR) | payer MEDICARE, SELFPAY ==
--- NOTE | 2021-11-09 09:54 | PTOPEVAL ---
PHYSICAL THERAPY EVALUATION AND PLAN OF CARE 11-09-21 Thank you for referring Jillian Gibson to [facility] for the diagnosis of low back pain. ?She is scheduled to be seen for therapy? 1 x/week for 4 weeks. Please review, sign, date and return this plan of care SYLWIA. I agree with and certify that the following plan of care is medically necessary. Referring Physician Date Attending Provider: Camille Rabago NP Past Medical History Source of Past Medical History Recalled from Previous Visit, Confirmed with Patient/Family Neurological History Hx Migraine Yes: HX MIGRAINES Cardiovascular History Hx Hypertension Yes: meds control Respiratory History Hx Pneumonia Yes: 03/29 Gastrointestinal History Hx Gastroesophageal Reflux Disease Yes Genitourinary History Hx Genitourinary Disorders No Significant History Musculoskeletal History Hx Arthritis Yes: OA in back Hx Back Pain Yes: fall about 20 yr ago and hit back Hx Other Musculoskeletal Disorders Yes: osteopenia Hematological History Hx Hematological Disorders No Significant History Endocrine History Hx Endocrine Disorders No Significant History HEENT History Hx Cataracts Yes: BILAT IMPLANTS Hx Sinus Problems Yes Integumentary History Hx Excision Skin Lesion Yes: BASAL CELL CA REMOVED FROM FACE Hx Other Skin Disorders Yes: RT THUMB SUBCUTANEOUS MASSES Reproductive History Hx Post Menopausal Yes Psychosocial History Hx Psychiatric Disorders No Significant History Pain History History of Any Previous or Ongoing No Significant History Instance of Pain Anesthesia History Hx Anesthesia Reactions No Significant History Other History Hx Cancer Yes: BASAL CELL CA-FACE Evaluation Information Diagnosis low back pain Onset Apr 2021 Subjective Information was in the hospital for Query Text:As Reported By Patient/ pneumonia and not as active, Family laid around more and noticed started having more back pain; increased and worse in September , problems with grocery shopping; back is little better over the past few weeks ; regaining strength, able to lift about 10# when working in the yard; no trauma to back; when went in for her regular physical they recommended she try PT; Diagn
--- NOTE | 2021-11-19 13:22 | PCPTNOTE ---
DISCHARGE PHYSICAL THERAPY 11-19-21 Attending Provider: Camille Rabago NP Patient:Jillian Gibson Date of :1940 Mrs. Gibson called today and canceled her PT treatment due to going to have a procedure and can no longer come for PT. Therefore, she will be discharged at this time. She received the PT evaluation and one treatment session, for the diagnosis of low back pain. The goals were not addressed. Thank you for referring this patient to [facility]. Please review, sign, date and return this discharge summary SYLWIA. I have been updated about the patient's current status and I agree with discharge from the above service at this time. Referring Physician Date
== END 2021-11-19 14:11 | disposition home or self-care (01) ==
LOC: ANHPT 10:30
PROVIDERS: PCP Internal Medicine; Referring Provider Nurse Practitioner; Visit Provider Nurse Practitioner
DX: M54.50 Low back pain, unspecified (principal)
CPT/HCPCS: 97110; 97112; 97161; 97530

== ENCOUNTER 2021-12-06 02:05 | Outpatient (CLI) | payer MEDICARE, SELFPAY ==
[2021-11-29 14:34] VITALS: BMI 22.6
--- NOTE | 2021-11-29 14:35 | PC.NURSE ---
Pre Radiology instructions Report to the Outpatient Waiting Room, entrance under the green pavilion located off [facility], at time __0830 on date __12/06/21 . Procedure Time: __1030 . One visitor will be allowed to accompany the patient into the hospital. The visitor will be instructed to remain with patient at all times or leave the building. We will allow the visitor to come back to the postoperative area when patient is ready. You and your visitor will be asked a series of questions to screen for COVID 19 for your protection. A mask is required within the hospital. Patients are to have no food or drink 6 hours prior to procedure time (0430 AM) Driving will be restricted after the procedure, you must have a person to drive you home. Labs will be drawn in preop area and once reviewed, you will be taken to radiology area for procedure. When the procedure is completed, you will be taken to outpatient where you will be monitored for several hours. You may have one visitor in this area. Other than holding anti-coagulants, patient may take other medication(s) as scheduled. Prior to your appointment date patients are instructed to hold anti-coagulants after discussing with ordering provider to stop. If unable to discontinue anti-coagulants please notify radiologist. No aspirin or warfarin (Coumadin) for 7 days prior to the procedure. No clopidogrel (Plavix), ticagrelor (Brilinta), prasugrel (Effient) or dabigatran (Pradaxa) for 5 days prior to the procedure. No rivaroxaban (Xarelto), apixaban (Eliquis), dipyridamole (Aggrenox or Persantine) or cilostazol (Pletal) for 2 days prior to the procedure. Medications to discontinue per physician: Date to take last dose: Please leave all valuables, including medications, at home the day of procedure. The hospital will not accept responsibility for valuables. Wear comfortable, loose fitting clothing. Follow any additional instructions given to you from ordering provider. Telephone instructions given to ____PT and asked if any additional questions and then verbalized understanding. Patient advised to call scheduling provider office or registration scheduling [phone] if any additional questions.
[2021-12-06] VITALS (14 sets, daily range): BP systolic 127–167; BP diastolic 79–104; PULSE 57–77; RESP 16–18; TEMP 36.8; O2SAT 95–100; BMI 23.2
--- NOTE | ~2021-12-06 | US_ITS ---
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 Risks discussed included bleeding and infection. The patient understood the risks and agreed to p roceed. A timeout was performed to verify the patient's name, date of , and procedure to be p erformed. The skin overlying the left kidney was prepped and draped in usual sterile fashion. Anest hetic was administered with 1% lidocaine subcutaneously. An 18 gauge core biopsy needle was then use d to obtain 4 core biopsy specimens under continuous sonographic guidance. The entry site was cleaned and dressed. On the procedure the patient developed some left-sided abdominal pain with hematuria. I went to see the patient who appeared and no significant distress. Vital signs remained unchanged wit h no decrease in blood pressure or heart rate elevation to suggest orthostasis. The patient's next vo id was collected and demonstrated reddish but clear, still transparent urine which improved to clear pinkish urine on the following voiding. The patient also developed some nausea. Repeat ultrasound tonya ges were obtained. Patient was treated with acetaminophen and Zofran for pain and nausea respectively with improvement of symptoms. Patient was discharged with instructions as detailed below. FINDINGS: Ultrasound images demonstrate the needle in the kidney. Images obtained 2 1/2 hours post bi opsy demonstrated mild left hydroureteronephrosis presumably due to some clot within the more distal nonvisualized left ureter. IMPRESSION: 1. Ultrasound-guided random left kidney core needle biopsy. 2. Procedure complicated by post procedure hematuria which had improved between the time of discharge . Patient remained hemodynamically stable without however developed mild left hydroureteronephrosis l ikely due to some clot within the nonvisualized more distal ureter. After discharge this was discusse d with the patient. The patient was counseled to remain well hydrated and to continue to monitor pain and urine output. Patient was advised to return to the emergency department should the hematuria not continue to improve or should there be significant progression of patient's pain or nausea. Reviewed, dictated and finalized at location A. IMPRESSION: 1. Ultrasound-guided random left kidney core needle biopsy. 2. Procedure complicated by post procedure hematuria which had improved between the time of discharge. Patient remained hemodynamically stable without however developed mild left hydroureteronephrosis likely due to some clot within the n onvisualized more distal ureter. After discharge this was discussed with the oriana corado. The patient was counseled to remain well hydrated and to continue to mon itor pain and urine output. Patient was advised to return to the emergency depa rtment should the hematuria not continue to improve or should there be signific ant progression of patient's pain or nausea.
--- NOTE | 2021-12-06 08:53 | SUR.PREOP ---
pt states no food after midnight. Water at 0430
[2021-12-06 09:17] LABS: Basophils Absolute Auto 0.1 K/mm3 (0.0-0.1); Basophils Percent Auto 0.8 % (0.2-1.2); Eosinophils Absolute Auto 0.2 K/mm3 (0-0.3); Eosinophils Percent Auto 3.2 % (0-4.4); Hematocrit 38.6 % (37.0-47.0); Hemoglobin 12.5 g/dL (12.0-15.0); Immature Granulocyte Absolute 0.03 K/mm3 (0.00-0.031); Immature Granulocyte Percent A 0.4 % (0-0.5); Lymphocytes Absolute Auto 1.94 K/mm3 (0.9-3.2); Lymphocytes Percent Auto 25.9 % (18.3-44.2); Mean Corpuscular HGB Conc 32.4 g/dl (32-36); Mean Corpuscular Hemoglobin 30.5 pg (26-34); Mean Corpuscular Volume 94.1 fl (80-100); Mean Platelet Volume 10.4 fl (7.4-10.4); Monocytes Absolute Auto 0.7 K/mm3 (0.1-0.6); Monocytes Percent Auto 9.8 % (2.6-8.5); Neutrophils Absolute Auto 4.5 K/mm3 (1.3-6.7); Neutrophils Percent Auto 59.9 % (45.5-73.1); Platelet Count Result 265 k/mm3 (150-375); Red Cell Distribution Width 12.6 % (11.5-14.5); White Blood Count 7.5 K/mm3 (4.5-10.0)
--- NOTE | 2021-12-06 09:17 | SUR.PREOP ---
0915; NOTIFIED U/S THAT LABS WERE DRAWN.
[2021-12-06 09:24] LABS: Prothrombin Time 13.1 Seconds (11.1-14.7)
[2021-12-06] MEDS: ACETAMINOPHEN 500 MG TABLET PO (12:11)
--- NOTE | 2021-12-06 12:57 | SUR.PHASEII ---
1150- Call to Dr. Vivar to notify him of patient having bright red blood in urine and complaints of left flank pain radiating to mid abdomen. No answer from MD at this time. Voicemail left with MD. Awaiting call back. 1155- Second call to Dr. Vivar to update him on patient's status. No answer at this time. Awaiting call back. 1200- Notified Dr. Vivar of patient having blood in urine and complaints of severe pain to mid abdomen. Patient states she is also having intermittent dizziness. Patient's vital signs remaining stable on room air. Per he will be to department to see patient at bedside and place orders for Tylenol 500MG PO once to be given with sip of water. 1211- Dr. Vivar to bedside to assess patient and PO Tylenol 500MG administered, see MAR. Per Dr. Vivar he will return to department to evaluate patient. 1257- Dr. Vivar returned to bedside and this RN notified MD patient with increased abdominal pain, one episode of emesis containing bile. Per Dr. Vivar he will place orders for Zofran 4MG IVP and orders for post procedure ultrasound.
[2021-12-06] MEDS: ONDANSETRON INJ 4 MG/2 ML VIAL IV PUSH (13:01)
--- NOTE | 2021-12-06 13:28 | SUR.PHASEII ---
1315 Dr Antony bedside to assess patient 1325 Ultrasound staff bedside to complete ultrasound per Dr Antony
--- NOTE | 2021-12-06 13:46 | SUR.PHASEII ---
[address] Antony bedside 1340 ultrasound completed 1345 patient states pain a little better, warm blanket applied states ok at this time.
--- NOTE | 2021-12-06 14:38 | SUR.PHASEII ---
1438- Dr. Vivar to bedside to evaluate patient's status. Notified MD patient voided light pink clear urine at 1435. Dr. Vivar discussed plan of care with patient including discharging home and parameters for returning to Emergency Department if needed.
--- NOTE | 2021-12-06 14:45 | SUR.PHASEII ---
Addendum entered by Kajal Malik RN 12/07/21 08:00: Per 's ultrasound results reviewed and patient can discharged home. Original Note: 1445- Per Dr. Vivar he reviewed ultrasound results with urologist, Dr. Billingsley and they are OK with discharging patient home. Per 's ultrasound showed hematoma.
== END 2021-12-06 15:22 | disposition home or self-care (01) ==
PROVIDERS: PCP Internal Medicine; Referring Provider Internal Medicine Nephrology; Visit Provider Radiology Diagnostic Radiology
PROC: (CPT 76942; principal; 2021-12-06 10:30)
DX: I12.9 Hypertensive chronic kidney disease with stage 1 through stage 4 chronic kidney disease, or unspecified chronic kidney disease (principal); N18.31 Chronic kidney disease, stage 3a; D47.2 Monoclonal gammopathy; N13.30 Unspecified hydronephrosis
CPT/HCPCS: 36415; 50200; 76942; 85025; 85610; 88300; 88305; 88313; 88329; 88346; 88348; 88350; A9270; J2405

== ENCOUNTER → 2022-01-09 16:40 | Outpatient (CLI) | payer MEDICARE, SELFPAY ==
--- NOTE | ~2022-01-09 | DEXA_ITS ---
Bone Density Report Name: MARISSA WHYTE Age: 81 Sex: Female Ethnicity: White Date of : 1940 Indication: postmenopausal; screening for osteoporosis; parental hip fracture; Referring Provider: Camille Rabago Study: Bone densitometry was performed. Exam Date: January 09, 2022 Accession number: [id number] Bone Density: Region BMD T-score Z-score Classification AP Spine (L1-L4) 0.952 -0.9 1.8 Normal Femoral Neck (Left) 0.601 -2.2 0.1 Osteopenia Total Hip (Left) 0.825 -1.0 1.1 Normal Femoral Neck (Right) 0.588 -2.4 0.0 Osteopenia Total Hip (Right) 0.808 -1.1 1.0 Osteopenia Total Hip Mean 0.817 -1.1 1.1 Osteopenia World Health Organization criteria for BMD impression classify patients as: Normal (T-score at or above -1.0), Osteopenia (T-score between -1.0 and -2.5), or Osteoporosis (T-score at or below -2.5). 10-year Fracture Risk(1): Major Osteoporotic Fracture 33% Hip Fracture 23% Reported Risk Factors: [place] (), Neck BMD=0.588, BMI=23.7, parental fracture (1) FRAX(R) Version 3.08. Fracture probability calculated for an untreated patient. Fracture probability may be lower if the patient has received treatment. Previous Exams: Region Exam Age BMD T-score BMD Change BMD Change Date g/cm2 vs Baseline vs Previous AP Spine(L1-L4) 01/09/2022 81 0.952 -0.9 0.016 -0.024* 02/22/2013 72 0.976 -0.6 0.040* 0.040* 01/14/2011 70 0.936 -1.0 Total Hip(Left) 01/09/2022 81 0.825 -1.0 0.007 -0.035* 02/22/2013 72 0.861 -0.7 0.043* 0.043* 01/14/2011 70 0.818 -1.0 Total Hip(Right) 01/09/2022 81 0.808 -1.1 -0.011 -0.073* 02/22/2013 72 0.882 -0.5 0.062* 0.062* 01/14/2011 70 0.819 -1.0 *Denotes significance at 95% confidence level, LSC for AP Spine = 0.022 g/cm2, LSC for Total Hip = 0.027 g/cm2 Clinical Information Provided by Patient: Parent has had a hip fracture Has used the following medications: Vitamin D, Calcium, MTV Patient maximum height was 60.0 Menopause Age: 51 Onset of menses at age 14 Number of children 2 Impression: The patient has low bone mass, based on the Right Femoral Neck T-score. The patient has an estimated ten-year risk of hip fracture of 23% and an estimated ten-year risk of major fracture of 33%, based on the WHO FRAX algorithm. The patient has risk factors, includin
== END ==
PROVIDERS: PCP Internal Medicine; Visit Provider Nurse Practitioner
DX: Z78.0 Asymptomatic menopausal state (principal); M85.88 Other specified disorders of bone density and structure, other site; M85.852 Other specified disorders of bone density and structure, left thigh; M85.851 Other specified disorders of bone density and structure, right thigh
CPT/HCPCS: 77080

== ENCOUNTER 2022-02-18 14:38 | Outpatient (CLI) | payer MEDICARE, SELFPAY ==
[2022-02-18 15:53] LABS: Hematocrit 39.8 % (37.0-47.0); Hemoglobin 12.7 g/dL (12.0-15.0); Mean Corpuscular HGB Conc 31.9 g/dl (32-36); Mean Corpuscular Hemoglobin 30.5 pg (26-34); Mean Corpuscular Volume 95.4 fl (80-100); Mean Platelet Volume 11.4 fl (7.4-10.4); Platelet Count Result 272 k/mm3 (150-375); Red Blood Count 4.17 M/mm3 (4.2-5.4); Red Cell Distribution Width 12.6 % (11.5-14.5); White Blood Count 9.5 K/mm3 (4.5-10.0)
[2022-02-18 16:05] LABS: Creatinine Urine 33.6 mg/dL; Total Protein Urine Random 14 mg/dL; Ur Ttl Prot Creatinine Ratio 0.42 mg/mg (0-0.20)
[2022-02-18 16:06] LABS: Albumin Level 3.8 g/dL (3.5-5.1); Anion Gap 12 mmol/L (8-16); Blood Urea Nitrogen 19 mg/dL (7-17); Calcium 9.1 mg/dL (8.4-10.2); Carbon Dioxide 29 mmol/L (22-30); Chloride 99 mmol/L (98-107); Estimated Glomerular Filt Rate 48; Glucose 77 mg/dL (65-110); Phosphorus 4.6 mg/dL (2.5-4.5); Sodium 140 mmol/L (137-145)
[2022-02-18 16:18] LABS: Parathyroid Intact 11.2 pg/mL (7.5-53.5)
== END 2022-02-18 14:39 | disposition home or self-care (01) ==
LOC: ANHLAB 14:40
PROVIDERS: PCP Internal Medicine; Visit Provider Internal Medicine Nephrology
DX: N18.31 Chronic kidney disease, stage 3a (principal)
CPT/HCPCS: 36415; 80069; 82570; 83970; 84156; 85027

== ENCOUNTER 2022-02-22 00:36 | Day surgery (SDC) | payer MEDICARE, SELFPAY ==
[2022-02-20 13:42] VITALS: BMI 22.5
--- NOTE | 2022-02-20 13:48 | PC.NURSE ---
Report to the Outpatient Waiting Room, entrance under the green pavilion located off [facility], at time ___0600____ on date ___02/22/22____. OR Time: ___729 . Time changes happen often and if your time is changed the preop area will call you the afternoon before. - You and your visitor will be asked to self-screen and do not enter if you have any COVID symptoms. - Only one visitor and NO children visitors are allowed at this time. - The patient visitor is requested to leave or wait in car when not with patient due to restrictions. - A mask is required within the hospital. Patients may have clear liquids (water, carbonated beverages, clear teas, apple juice) until 3 hours prior to surgery (0430 AM) with a maximum of 20 ounces. - No food from midnight until time of surgery - Infants may have breast milk until 4 hours before surgery, infant formula 6 hours prior to surgery. - Children will be allowed to drink immediately following surgery. If applicable, please bring a bottle or sippy cup to assist with drinking. Juice, water, soda, and popsicles are readily available. For infants on formula, please bring formula the day of surgery. Pacifiers are allowed. Take the following medications with a SIP of water the morning of surgery: NONE Medications to discontinue per physician VITAMINS OF TODAY 02/20/22 Date to take last dose Please no make-up, nail armenian, hairspray, perfume, deodorant, or body powder the day of surgery. No jewelry (including any body piercings) or valuables the day of surgery, leave them at home. Please take a shower or bath the night before, or the morning of, surgery with an antibacterial soap. Wear comfortable, loose fitting clothing. Children are encouraged to wear pajamas. - Jewelry must be removed prior to entering the operating room. Rings and piercings that are not removed may be cut off. - The hospital will not accept responsibility for valuables. - Please leave all valuables, including medications, at home the day of surgery. If you are going home after surgery, a licensed local company refrigerated truck driver must drive you home. - NO public transportation without another adult. - We recommend that an adult stay with you for 24 hours following discharge. - We also recommend that you do not drive, make important decision, drink alcoholic beverages, or take any drugs that were not prescribed by your health care provider for at least 24 hours after your discharge time. For Pediatric surgeries, we recommend two adults accompany the child home (only one inside the building at this time). Follow any additional instructions given to you from your surgeon. If you or anyone in your household have experienced Covid symptoms in the past week, please notify your surgeon or the nurse liaison at the phone number below for possible testing. Telephone instructions given to PT and asked if any additional questions and then verbalized understanding. Patient advised to call surgeon office or pre surgery nurse liaison [phone] if any additional questions.
--- NOTE | 2022-02-21 09:00 | WPDANESEPPF ---
Anes - Initial Pre Proc Eval Procedure: Operation Date: 02/22/22 07:30 Proposed Procedures p Cheilectomy First Metatarsal Phalangeal Joint Left Foot - Diony Gonzales JR, MD Date/Time: 02/21/22 09:00 Surgeon: Diony Gonzales JR, MD Pre Op Diagnosis: Osteophyte Lt First MPJ Patient Data Age: 81 Gender: F Height: 1.52 m Weight: 52.27 kg Allergies Allergy/AdvReac Type Severity Reaction Status Date / Time No Known Allergies Allergy Verified 02/22/22 06:18 Home Medications Medication Instructions Recorded Confirmed Type fexofenadine 180 mg tablet 180 mg PO DAILY 10/04/20 02/22/22 History losartan 50 mg tablet 50 mg PO DAILY #90 tabs 10/23/21 02/22/22 Rx calcium 650 mg-vitamin D3 12.5 1 tablet PO DAILY 10/30/21 02/22/22 History mcg-vitamin K 40 mcg chewable tablet (Viactiv) multivit with 1 tablet PO DAILY 10/30/21 02/22/22 History kavxsgiy-hhhy-EG-lutein 8 mg iron-400 mcg-300 mcg tablet (Centrum Silver Women) pantoprazole 40 mg tablet,delayed See Rx Instructions .Route 01/16/22 02/22/22 Rx release .COMPLEX #90 tabs Patient hx anesthesia problems: none Family hx anesthesia problems: none Results Review: All pre-operative results and documents have been reviewed as part of the pre-operative evaluation. [facility] Past Medical History Medical History (Updated 10/30/21 @ 14:15 by Camille Rabago NP) Allergies Cartilage disorder CKD (chronic kidney disease), stage III Colon polyps GERD (gastroesophageal reflux disease) History of pneumonia Hypertension Migraine Monoclonal gammopathy of undetermined significance Osteoarthritis Osteopenia Paraproteinemia Post-menopausal Vitamin deficiency Family History Family History Mother Family history of osteoporosis Family history of Alzheimer's disease Father Family history of transient ischemic attacks Cerebrovascular accident Social History Social History (Updated 10/30/21 @ 13:47 by Marilynn Zayas MA) Social History: Caffeine-1 cup weekly Smoking status: Never smoker Second hand tobacco smoke exposure: No Alcohol intake: current Alcohol use details: RARELY MAYBE 5-6 DRINKS A YEAR Substance use: never Substance use type: does not use Living arrangements: with family Additional living arrangements comments: Spiritual care concerns: No Anes - Eval Final PreProcedure Day of Procedure 02/21/22 09:00 Patient weight: normal Heart: regular rate and rhythm Lungs: clear to auscultation and normal air movement Airway: Mallampati scale class II Neurological: alert and oriented Last oral intake: >/= 8 hours ASA classification: III Emergent: no Anesthetic plan: proceed Anesthesia type and monitoring: general GIVS and standard monitoring Results Review: All pre-operative results and documents have been reviewed as part of the pre-operative evaluation. Informed Consent: The patient's anesthetic plan and its attendant risks and benefits were discussed with the patient/family/POA. Questions were solicited and answers provided to the satisfaction of the patient/family/POA.
--- NOTE | ~2022-02-22 | XR_ITS ---
EXAMINATION: XR surgery orthopedic DATE: 02/22/2022 08:36 INDICATION: Cheilectomy at the left first metatarsophalangeal joint TECHNIQUE: 2 fluoroscopic images of the left forefoot were obtained during procedure performed by Dr. Gonzales. Radiologist was not present for the imaging or procedure. The amount of fluoroscopy time u sed during this procedure was 0.1 minutes. COMPARISON: None. FINDINGS: Osteotomy/cheilectomy involving the dorsal aspect of the head of the first metatarsal. There is moder ate to severe joint space narrowing at the first metatarsophalangeal joint. Additional osteoarthritis suggest at a few of the distal interphalangeal joints which are suboptimally profiled. No fracture. Lap sponge is positioned between the first and second toes. IMPRESSION: 1. Expected appearance post osteotomy/cheilectomy at the dorsal head of the first metatarsal with mod erate to severe osteoarthritis at the first metatarsophalangeal joint. Reviewed, dictated and finalized at location A. IMPRESSION: 1. Expected appearance post osteotomy/cheilectomy at the dorsal head of the fir st metatarsal with moderate to severe osteoarthritis at the first metatarsophal angeal joint.
[2022-02-22] MEDS: LACTATED RINGERS 1,000 ML 30 ML IV CONT (06:35)
[2022-02-22 06:42] VITALS: BP 124/89; PULSE 80; RESP 16; TEMP 36.8; O2SAT 97
[2022-02-22 06:50] LABS: INR 1.1; Prothrombin Time 13.6 Seconds (11.1-14.7)
[2022-02-22 06:51] LABS: Partial Thromboplastin Time 33.4 SECONDS (22.3-36.8)
--- NOTE | 2022-02-22 07:15 | WPDHPUPDATE1 ---
History and Physical Update Update Date/Time: 02/22/22 07:15 History and Physical has been reviewed, including an updated exam of the patient. There are NO changes in the patient's condition. Risks, benefits, and alternatives have been discussed and questions answered. Patient agrees to proceed with procedure.
[2022-02-22] MEDS: ceFAZolin 2 GM/D5W 50 ML 2 GM/50 ML BAG IVPB (07:24)
[2022-02-22] MEDS: LIDOCAINE HCL 2% PF INJ 5 ML VIAL 20 ML INFILTRATE (07:52)
[2022-02-22 08:20] VITALS: BP 94/60; PULSE 68; RESP 12; O2SAT 96
--- NOTE | 2022-02-22 08:21 | W.PM.PROC2 ---
Procedure Note - Detailed Date of Procedure 02/22/22 Pre-op Diagnosis Osteophyte Left first metatarsal phalangeal joint Post-op Diagnosis Same Procedure Performed Cheilectomy first metatarsal phalangeal joint left foot Surgeon Diony Gonzales JR, DPM Findings Painful bone spur left foot Description of Procedure PROCEDURE IN DETAIL: Under mild sedation, the patient was brought into the operating room, placed on the operating table in supine position. A pneumatic ankle tourniquet was placed about the patient's right ankle. Following general LMA, a local anesthetic block was obtained about the foot and ankle utilizing 20 cc of a 1:1 of 2% Lidocaine plain and 0.5% Marcaine plain. The foot was then scrubbed, prepped, and draped in the usual aseptic manner. An Esmarch bandage was then used to exsanguinate the patient's foot and the pneumatic ankle tourniquet was then inflated. Surgery began in the following manner: Attention was directed to the dorsal aspect of the 1st metatarsophalangeal joint where there was a large osteophyte noted along the dorsomedial aspect of the joint. The incision was made starting along the central shaft of the 1st metatarsal and extending just proximal to the interphalangeal joint of the hallux. The incision was continued deep down through the subcutaneous tissues using sharp and blunt dissection. All bleeders were cauterized as necessary. At this point, the dissection was continued down to the level of the periosteum and capsular structures overlying the 1st metatarsophalangeal joint. A full length periosteum and capsular incision was made just medial to the extensor hallucis longus tendon. The periosteum and capsular structures were freed from the base of the proximal phalanx as well as the distal 1st metatarsal. At this point, the 1st metatarsophalangeal joint was identified. There was moderate loss of articular cartilage to the dorsal aspect of head of the 1st metatarsal . There was significant broadening and hypertrophy of the 1st metatarsophalangeal joint with a very large dorsal spur, that was fragmented within the joint. Utilizing a sagittal bone saw, the hypertrophied 1st metatarsal was resected dorsally, medially, and laterally. A power bur was used to make sure that there were no rough edges and also to further debride the hypertrophic 1st metatarsal and base of proximal phalanx. Approximately one third of the dorsal first metatarsal was resected. Next, a rongeur was used to resect all hypertrophic base of the proximal phalanx. Moreover, the wound site was then flushed with copious amounts of sterile saline. Fluoroscopy was adequate resection of the osseous proliferation to the first metatarsal phalangeal joint. Next, the periosteum and capsular structures were reapproximated with 3-0 PDS. Next, the subcutaneous structures were reapproximated with 4-0 Vicryl. Next, the skin was reapproximated and coapted utilizing 4-0 Monocryl in running subcuticular suture fashion technique. Upon completion of the procedure, the incision was dressed with Steri-Strips, Adaptic, 4x4s, Kerlix, and Coban. The pneumatic ankle tourniquet was then deflated and a prompt hyperemic response was noted to all digits of the foot. A surgical shoe was then applied to the affected lower extremity. It is important to note that Dr. Gonzales was present throughout the procedure. The patient did very well with the procedure and the anesthesia. She was transferred to the recovery room with vital signs stable and vascular status intact to all toes of the foot. Following a period of postoperative monitoring, the patient will be discharged home on the following written and oral postoperative instructions: 1. Keep the dressing clean, dry, and intact. 2. The patient to be protected weight bearing with a surgical shoe. 3. The patient should ice and elevate the affected foot when at rest. 4. The patient should contact Dr. Gonzales fo
[2022-02-22 08:50] VITALS: BP 122/79; PULSE 68; RESP 16
[2022-02-22 09:10] VITALS: BP 132/82; PULSE 69; RESP 16
== END 2022-02-22 09:30 | disposition home or self-care (01) ==
PROVIDERS: PCP Internal Medicine; Visit Provider Podiatrist Foot & Ankle Surgery
PROC: (CPT 28299; principal; 2022-02-22 07:30)
DX: M25.775 Osteophyte, left foot (principal); I12.9 Hypertensive chronic kidney disease with stage 1 through stage 4 chronic kidney disease, or unspecified chronic kidney disease; N18.30 Chronic kidney disease, stage 3 unspecified; K21.9 Gastro-esophageal reflux disease without esophagitis; D47.2 Monoclonal gammopathy
CPT/HCPCS: 28289; 36415; 85610; 85730; 99199; J0690; J1100; J2370; J2704; J3010; J7120

== ENCOUNTER 2022-03-25 14:12 | Outpatient (CLI) | payer MEDICARE, SELFPAY ==
[2022-03-25 14:45] LABS: Basophils Absolute Auto 0.1 K/mm3 (0.0-0.1); Basophils Percent Auto 0.7 % (0.2-1.2); Eosinophils Absolute Auto 0.2 K/mm3 (0-0.3); Hematocrit 38.5 % (37.0-47.0); Hemoglobin 12.5 g/dL (12.0-15.0); Immature Granulocyte Absolute 0.02 K/mm3 (0.00-0.031); Immature Granulocyte Percent A 0.3 % (0-0.5); Lymphocytes Absolute Auto 2.18 K/mm3 (0.9-3.2); Lymphocytes Percent Auto 28.4 % (18.3-44.2); Mean Corpuscular HGB Conc 32.5 g/dl (32-36); Mean Corpuscular Hemoglobin 30.9 pg (26-34); Mean Corpuscular Volume 95.1 fl (80-100); Mean Platelet Volume 10.7 fl (7.4-10.4); Monocytes Absolute Auto 0.7 K/mm3 (0.1-0.6); Monocytes Percent Auto 8.9 % (2.6-8.5); Neutrophils Absolute Auto 4.5 K/mm3 (1.3-6.7); Neutrophils Percent Auto 58.7 % (45.5-73.1); Platelet Count Result 262 k/mm3 (150-375); Red Blood Count 4.05 M/mm3 (4.2-5.4); White Blood Count 7.7 K/mm3 (4.5-10.0)
[2022-03-25 14:54] LABS: Alanine Aminotransferase 16 U/L (6-35); Albumin Level 3.5 g/dL (3.5-5.1); Alkaline Phosphatase 68 U/L (38-126); Anion Gap 12 mmol/L (8-16); Aspartate Amino Transferase 26 U/L (14-36); Bilirubin,Total 0.5 mg/dL (0.2-1.3); Blood Urea Nitrogen 19 mg/dL (7-17); Calcium 8.2 mg/dL (8.4-10.2); Carbon Dioxide 28 mmol/L (22-30); Chloride 103 mmol/L (98-107); Estimated Glomerular Filt Rate 48; Glucose 157 mg/dL (65-110); Potassium 3.8 mmol/L (3.4-5.0); Sodium 143 mmol/L (137-145)
[2022-03-28 06:19] LABS: Immunoglobulin G, Serum 1024 mg/dL (600-1540); Immunoglobulin G1 185 mg/dL (382-929); Immunoglobulin G2 136 mg/dL (241-700); Immunoglobulin G3 27 mg/dL (22-178); Immunoglobulin G4 485.7 mg/dL (4.0-86.0)
[2022-03-28 11:10] LABS: Kappa\\Lambda Light Chains 0.17 (0.26-1.65); Lambda Light Chain 72.8 mg/L (5.7-26.3)
== END 2022-03-25 14:13 | disposition home or self-care (01) ==
PROVIDERS: PCP Internal Medicine; Visit Provider Internal Medicine Hematology & Oncology
DX: D47.2 Monoclonal gammopathy (principal)
CPT/HCPCS: 36415; 80053; 82784; 82787; 83883; 84155; 84165; 85025; 86334

== ENCOUNTER 2022-08-29 11:30 | Outpatient (CLI) | payer MEDICARE, SELFPAY ==
[2022-08-29 11:57] LABS: Hematocrit 40.3 % (37.0-47.0); Hemoglobin 13.2 g/dL (12.0-15.0); Mean Corpuscular HGB Conc 32.8 g/dl (32-36); Mean Corpuscular Hemoglobin 30.8 pg (26-34); Mean Corpuscular Volume 94.2 fl (80-100); Mean Platelet Volume 10.4 fl (7.4-10.4); Platelet Count Result 280 k/mm3 (150-375); Red Blood Count 4.28 M/mm3 (4.2-5.4); Red Cell Distribution Width 13.5 % (11.5-14.5); White Blood Count 8.2 K/mm3 (4.5-10.0)
[2022-08-29 12:01] LABS: Creatinine Urine 42.7 mg/dL; Total Protein Urine Random 15 mg/dL; Ur Ttl Prot Creatinine Ratio 0.35 mg/mg (0-0.20)
[2022-08-29 12:05] LABS: Albumin Level 3.8 g/dL (3.5-5.1); Anion Gap 3 mmol/L (8-16); Blood Urea Nitrogen 16 mg/dL (7-17); Calcium 8.8 mg/dL (8.4-10.2); Carbon Dioxide 34 mmol/L (22-30); Chloride 103 mmol/L (98-107); Estimated Glomerular Filt Rate 48; Glucose 77 mg/dL (65-110); Phosphorus 4.5 mg/dL (2.5-4.5); Potassium 4.4 mmol/L (3.4-5.0); Sodium 140 mmol/L (137-145)
[2022-08-29 12:17] LABS: Parathyroid Intact 21.5 pg/mL (7.5-53.5)
== END 2022-08-29 11:31 | disposition home or self-care (01) ==
LOC: ANHLAB 11:31
PROVIDERS: PCP Internal Medicine; Visit Provider Internal Medicine Nephrology
DX: N18.31 Chronic kidney disease, stage 3a (principal)
CPT/HCPCS: 36415; 80069; 82570; 83970; 84156; 85027

== ENCOUNTER 2022-09-30 15:24 | Outpatient (CLI) | payer MEDICARE, SELFPAY ==
[2022-09-30 16:24] LABS: Basophils Absolute Auto 0.1 K/mm3 (0.0-0.1); Basophils Percent Auto 0.7 % (0.2-1.2); Eosinophils Absolute Auto 0.2 K/mm3 (0-0.3); Eosinophils Percent Auto 2.6 % (0-4.4); Hematocrit 40.5 % (37.0-47.0); Hemoglobin 13.5 g/dL (12.0-15.0); Immature Granulocyte Absolute 0.02 K/mm3 (0.00-0.031); Immature Granulocyte Percent A 0.2 % (0-0.5); Lymphocytes Absolute Auto 2.22 K/mm3 (0.9-3.2); Lymphocytes Percent Auto 25.1 % (18.3-44.2); Mean Corpuscular HGB Conc 33.3 g/dl (32-36); Mean Corpuscular Hemoglobin 31.5 pg (26-34); Mean Corpuscular Volume 94.6 fl (80-100); Mean Platelet Volume 10.7 fl (7.4-10.4); Monocytes Absolute Auto 0.8 K/mm3 (0.1-0.6); Monocytes Percent Auto 8.6 % (2.6-8.5); Neutrophils Absolute Auto 5.5 K/mm3 (1.3-6.7); Neutrophils Percent Auto 62.8 % (45.5-73.1); Platelet Count Result 309 k/mm3 (150-375); Red Blood Count 4.28 M/mm3 (4.2-5.4); Red Cell Distribution Width 13.8 % (11.5-14.5); White Blood Count 8.8 K/mm3 (4.5-10.0)
[2022-09-30 16:36] LABS: Alanine Aminotransferase 27 U/L (6-35); Albumin Level 3.9 g/dL (3.5-5.1); Alkaline Phosphatase 74 U/L (38-126); Anion Gap 5 mmol/L (8-16); Aspartate Amino Transferase 32 U/L (14-36); Bilirubin,Total 0.6 mg/dL (0.2-1.3); Blood Urea Nitrogen 16 mg/dL (7-17); Calcium 8.8 mg/dL (8.4-10.2); Carbon Dioxide 32 mmol/L (22-30); Chloride 103 mmol/L (98-107); Estimated Glomerular Filt Rate 43; Glucose 124 mg/dL (65-110); Potassium 3.7 mmol/L (3.4-5.0); Sodium 140 mmol/L (137-145)
[2022-09-30 17:07] LABS: Immunoglobulin A 205 mg/dL (70-400); Immunoglobulin G 1255 mg/dL (700-1600); Immunoglobulin M 41 mg/dL (40-230)
[2022-10-03 18:26] LABS: Abnormal Protein Band 1 1.2 g/dL; Albumin 3.3 g/dL (3.8-4.8); Alpha 1 Globulin 0.3 g/dL (0.2-0.3); Alpha 2 Globulin 0.8 g/dL (0.5-0.9); Beta 1 Globulin 1.4 g/dL (0.4-0.6); Gamma Globulin 0.4 g/dL (0.8-1.7); Protein, Total 6.5 g/dL (6.1-8.1)
[2022-10-03 21:17] LABS: Kappa\\Lambda Light Chains 0.17 (0.26-1.65); Lambda Light Chain 82.6 mg/L (5.7-26.3)
== END 2022-09-30 15:25 | disposition home or self-care (01) ==
PROVIDERS: PCP Internal Medicine; Visit Provider Internal Medicine Hematology & Oncology
DX: D47.2 Monoclonal gammopathy (principal)
CPT/HCPCS: 36415; 80053; 82784; 83883; 84155; 84165; 85025

== ENCOUNTER 2023-02-21 19:07 | Outpatient (NON) | payer MEDICARE, SELFPAY ==
[2023-02-21 22:14] LABS: Appearance Urine Clear (Clear); Bilirubin Urine Negative (Negative); Blood Urine 2+ (Negative); Color Urine Yellow (Yellow); Glucose Urine UA Negative (Negative); Ketones Urine Negative (Negative); Leukocyte Esterase Ur 3+ LEU/UL (Negative); Nitrate Urine Negative (Negative); Protein Urine 2+ mg/dL (Negative); Urobilinogen Urine 0.2 mg/dL (<2.0)
[2023-02-21 22:17] LABS: Add Urine Microscopic? YES
[2023-02-21 22:21] LABS: Bacteria Urine 1+ /hpf; WBC Urine >100 /hpf (0-3)
== END 2023-02-21 19:08 | disposition home or self-care (01) ==
LOC: ANHLAB 19:09
PROVIDERS: PCP Internal Medicine; Visit Provider Clinical Nurse Specialist
DX: R39.9 Unspecified symptoms and signs involving the genitourinary system (principal)
CPT/HCPCS: 81001

== ENCOUNTER 2023-03-11 13:53 | Outpatient (CLI) | payer MEDICARE, SELFPAY ==
[2023-03-11 18:50] LABS: Creatinine Urine 214.4 mg/dL; Total Protein Urine Random 12 mg/dL; Ur Ttl Prot Creatinine Ratio 0.06 mg/mg (0-0.20)
[2023-03-11 19:10] LABS: Parathyroid Intact 30.4 pg/mL (7.5-53.5)
[2023-03-11 19:26] LABS: Albumin Level 3.6 g/dL (3.5-5.1); Anion Gap 7 mmol/L (8-16); Blood Urea Nitrogen 20 mg/dL (7-17); Calcium 8.6 mg/dL (8.4-10.2); Carbon Dioxide 29 mmol/L (22-30); Chloride 104 mmol/L (98-107); Estimated Glomerular Filt Rate 43; Glucose 128 mg/dL (65-110); Phosphorus 4.6 mg/dL (2.5-4.5); Sodium 140 mmol/L (137-145)
== END 2023-03-11 13:54 | disposition home or self-care (01) ==
PROVIDERS: PCP Internal Medicine; Visit Provider Internal Medicine Nephrology
DX: N18.31 Chronic kidney disease, stage 3a (principal)
CPT/HCPCS: 36415; 80069; 82570; 83970; 84156

== ENCOUNTER 2023-09-03 14:20 | Outpatient (CLI) | payer MEDICARE, SELFPAY ==
[2023-09-03 18:53] LABS: Hematocrit 41.2 % (37.0-47.0); Hemoglobin 13.2 g/dL (12.0-15.0); Mean Corpuscular Hemoglobin 30.8 pg (26-34); Mean Corpuscular Volume 96.3 fl (80-100); Mean Platelet Volume 11.3 fl (7.4-10.4); Platelet Count Result 293 k/mm3 (150-375); Red Blood Count 4.28 M/mm3 (4.2-5.4); White Blood Count 9.2 K/mm3 (4.5-10.0)
[2023-09-03 19:00] LABS: Albumin Level 3.5 g/dL (3.5-5.1); Anion Gap 4 mmol/L (4-12); Blood Urea Nitrogen 18 mg/dL (7-17); Calcium 8.6 mg/dL (8.4-10.2); Carbon Dioxide 33 mmol/L (22-30); Chloride 103 mmol/L (98-107); Estimated Glomerular Filt Rate 48; Glucose 147 mg/dL (65-110); Phosphorus 4.1 mg/dL (2.5-4.5); Potassium 4.1 mmol/L (3.4-5.0); Sodium 140 mmol/L (137-145)
[2023-09-03 19:06] LABS: Parathyroid Intact 10.5 pg/mL (7.5-53.5)
[2023-09-03 19:18] LABS: Creatinine Urine 32.4 mg/dL; Total Protein Urine Random 14 mg/dL; Ur Ttl Prot Creatinine Ratio 0.43 mg/mg (0-0.20)
[2023-09-03 20:03] LABS: Bacteria Urine 1+ /hpf; Need Manual Microscopic Reviewed; Non Pathogenic Casts 0-2; Squamous Epithelial Cell Urine None Seen /hpf (Few); WBC Urine 0-5 /hpf (0-3)
[2023-09-03 20:07] LABS: Appearance Urine Clear (Clear); Color Urine Yellow (Yellow); Glucose Urine UA Negative (Negative); Protein Urine Negative (Negative)
[2023-09-03 20:08] LABS: Bilirubin Urine Negative (Negative); Blood Urine Trace-intact (Negative); Ketones Urine Negative (Negative); Leukocyte Esterase Ur Trace LEU/UL (Negative); Nitrate Urine Negative (Negative); Urobilinogen Urine 0.2 mg/dL (<2.0)
[2023-09-03 20:21] LABS: Add Urine Microscopic? YES
== END 2023-09-03 14:21 | disposition home or self-care (01) ==
LOC: ANHGOSHLAB 14:22
PROVIDERS: Clinical Nurse Specialist; PCP Internal Medicine; Visit Provider Internal Medicine Nephrology
DX: R39.9 Unspecified symptoms and signs involving the genitourinary system (principal); N18.31 Chronic kidney disease, stage 3a
CPT/HCPCS: 36415; 80069; 81001; 82570; 83970; 84156; 85027

== ENCOUNTER 2023-09-24 15:40 | Outpatient (CLI) | payer MEDICARE, SELFPAY ==
[2023-09-24 19:37] LABS: Creatinine Urine 81.4 mg/dL; Total Protein Urine Random 21 mg/dL; Ur Ttl Prot Creatinine Ratio 0.26 mg/mg (0-0.20)
[2023-09-24 19:52] LABS: Appearance Urine Cloudy (Clear); Bacteria Urine 4+ /hpf; Bilirubin Urine Negative (Negative); Blood Urine Negative (Negative); Color Urine Yellow (Yellow); Glucose Urine UA Negative (Negative); Ketones Urine Negative (Negative); Leukocyte Esterase Ur 2+ LEU/UL (Negative); Nitrate Urine Negative (Negative); Protein Urine Negative (Negative); RBC Urine 0-2 /hpf (0-2); Specific Grav Ur 1.011 (1.001-1.035); Squamous Epithelial Cell Urine None Seen /hpf (Few); Urobilinogen Urine 0.2 mg/dL (<2.0); WBC Urine >100 /hpf (0-3); pH Urine 5.5 (5.0-9.0)
[2023-09-24 19:55] LABS: Add Urine Microscopic? YES
== END 2023-09-24 15:41 | disposition home or self-care (01) ==
LOC: ANHGOSHLAB 15:41
PROVIDERS: PCP Internal Medicine; Visit Provider Internal Medicine Nephrology
DX: N18.31 Chronic kidney disease, stage 3a (principal)
CPT/HCPCS: 81001; 82570; 84156

== ENCOUNTER 2023-09-26 11:19 | Outpatient (CLI) | payer MEDICARE, SELFPAY | END 2023-09-26 11:20 | disposition home or self-care (01) | LOC: ANHGOSHLAB 11:21 | PROVIDERS: PCP Internal Medicine; Visit Provider Internal Medicine Nephrology | DX: R82.81 Pyuria (principal); N28.9 Disorder of kidney and ureter, unspecified | CPT/HCPCS: 87077; 87086; 87088; 87186 ==

== ENCOUNTER 2023-11-04 12:31 | Emergency (ER) | payer MEDICARE, SELFPAY ==
--- NOTE | 2023-11-04 12:38 | ED.FEMALEGU ---
HPI - Female Genitourinary General Chief complaint: Urogenital-Female Stated complaint: UTI SYMPTOMS Time Seen by Provider: 11/04/23 13:04 Source: patient, RN notes reviewed and old records reviewed Mode of arrival: ambulatory Limitations: no limitations History of Present Illness HPI Narrative: 82-year-old female presents to the [facility] with concerns for a UTI. Per patient record has history of elevated creatinine level. Patient presents with urinary frequency, urgency and burning since Friday, 3 days. Has been taking azo. Denies any nausea or vomiting. Denies fevers. Denies abdominal pain or back pain. Reviewed culture report from 09/26/2023 Related Data Home Medications Medication Instructions Recorded Confirmed fexofenadine 180 mg tablet 180 mg PO DAILY 10/04/20 11/04/23 artificial tears(hypromellose) 0.3 1 drp EACH EYE DAILY 07/24/22 11/04/23 % eye gel (Systane Gel) calcium 650 mg-vitamin D3 12.5 1 tablet PO BID 07/24/22 11/04/23 mcg-vitamin K 40 mcg chewable tablet (Viactiv) calcium and magnesium carbonates 1 tablet PO DAILY 07/24/22 11/04/23 520 mg-400 mg tablet Allergies Allergy/AdvReac Type Severity Reaction Status Date / Time No Known Allergies Allergy Verified 11/04/23 12:45 Review of Systems Review of Systems: All systems reviewed & are unremarkable except as noted in HPI and below Constitutional: Constitutional: Reports no additional constitutional complaints Cardiovascular: Cardiovascular: Reports no additional cardiovascular complaints, Denies chest pain and Denies dyspnea Respiratory: Respiratory: Reports no additional respiratory complaints, Denies chest congestion, Denies cough and Denies dyspnea Gastrointestinal: Gastrointestinal: Reports no additional gastrointestinal complaints, Denies abdominal pain, Denies nausea and Denies vomiting Genitourinary: Genitourinary: Reports as per HPI and Reports dysuria Musculoskeletal: Musculoskeletal: Reports no additional musculoskeletal complaints Integumentary/Breasts: Skin/Breast: Reports system reviewed and no additional complaints, except as docu Neurologic: Reports system reviewed and no additional complaints, except as documented Psychiatric: Psychiatric: Reports no additional psychiatric complaints Allergic/Immunologic: Allergic/Immunologic: Reports no additional allergic/immunologic complaints PMFSH Past Medical History Medical History Allergies Cartilage disorder CKD (chronic kidney disease), stage III Colon polyps GERD (gastroesophageal reflux disease) History of pneumonia Hypertension Migraine Monoclonal gammopathy of undetermined significance Osteoarthritis Osteopenia Paraproteinemia Post-menopausal Sepsis Vitamin deficiency Surgical History Surgical History Status post biopsy of kidney Status post left foot surgery Family History Family History Mother Family history of osteoporosis Family history of Alzheimer's disease Father Family history of transient ischemic attacks Cerebrovascular accident Social History Social History Social History: Caffeine-1 cup weekly Smoking status: Never smoker Second hand tobacco smoke exposure: No Alcohol intake: current Alcohol use details: RARELY MAYBE 5-6 DRINKS A YEAR Substance use: never Substance use type: does not use Do You Feel Safe in your Home?: Yes Lack of Transportation: No Lack of Food: Never True Current Housing: I Have Housing Concerned About Future Housing: No Difficulty Paying Gas/Electric Bills: No Difficulty Paying for Meds: No Currently Unemployed: No Education: Bachelor's Degree Difficulty w/ Childcare or Family Care: No Living arrangements: with family Additional living arrangements comme
[2023-11-04 12:39] VITALS: BP 134/94; PULSE 76; RESP 18; TEMP 36.4; O2SAT 97
== END 2023-11-04 13:18 | disposition home or self-care (01) ==
PROVIDERS: Emergency Provider Nurse Practitioner; PCP Nurse Practitioner
DX: N30.01 Acute cystitis with hematuria (principal); I12.9 Hypertensive chronic kidney disease with stage 1 through stage 4 chronic kidney disease, or unspecified chronic kidney disease; N18.2 Chronic kidney disease, stage 2 (mild); K21.9 Gastro-esophageal reflux disease without esophagitis; M19.90 Unspecified osteoarthritis, unspecified site; M81.0 Age-related osteoporosis without current pathological fracture
CPT/HCPCS: 81003; 87077; 87086; 87088; 87186; 99213; G0463

== ENCOUNTER 2024-03-16 11:44 | Outpatient (CLI) | payer MEDICARE, SELFPAY ==
[2024-03-16 13:59] LABS: Hematocrit 41.8 % (37.0-47.0); Hemoglobin 13.4 g/dL (12.0-15.0); Mean Corpuscular HGB Conc 32.1 g/dl (32-36); Mean Corpuscular Hemoglobin 30.8 pg (26-34); Mean Corpuscular Volume 96.1 fl (80-100); Mean Platelet Volume 11.1 fl (7.4-10.4); Platelet Count Result 338 k/mm3 (150-375); Red Blood Count 4.35 M/mm3 (4.2-5.4); White Blood Count 7.5 K/mm3 (4.5-10.0)
[2024-03-16 14:39] LABS: Albumin Level 3.9 g/dL (3.5-5.1); Anion Gap 9 mmol/L (4-12); Blood Urea Nitrogen 21 mg/dL (7-17); Calcium 9.2 mg/dL (8.4-10.2); Carbon Dioxide 30 mmol/L (22-30); Chloride 98 mmol/L (98-107); Estimated Glomerular Filt Rate 48; Glucose 133 mg/dL (65-110); Phosphorus 5.2 mg/dL (2.5-4.5); Potassium 3.9 mmol/L (3.4-5.0); Sodium 137 mmol/L (137-145)
[2024-03-16 14:53] LABS: Add Urine Microscopic? YES; Appearance Urine Clear (Clear); Bacteria Urine None Seen /hpf; Bilirubin Urine Negative (Negative); Blood Urine Negative (Negative); Color Urine Yellow (Yellow); Glucose Urine UA Negative (Negative); Ketones Urine Negative (Negative); Leukocyte Esterase Ur 2+ LEU/UL (Negative); Need Manual Microscopic Reviewed; Nitrate Urine Negative (Negative); Non Pathogenic Casts 0-2; Protein Urine Negative (Negative); RBC Urine 0-2 /hpf (0-2); Specific Grav Ur 1.014 (1.001-1.035); Squamous Epithelial Cell Urine None Seen /hpf (Few); Urobilinogen Urine 0.2 mg/dL (<2.0); WBC Urine 0-5 /hpf (0-3)
[2024-03-16 15:02] LABS: Parathyroid Intact < 14.5 pg/mL (14.5-75.2)
[2024-03-16 15:06] LABS: Creatinine Urine 108.3 mg/dL; Total Protein Urine Random 20 mg/dL; Ur Ttl Prot Creatinine Ratio 0.18 mg/mg (0-0.20)
== END 2024-03-16 11:45 | disposition home or self-care (01) ==
LOC: ANHGOSHLAB 11:46
PROVIDERS: PCP Nurse Practitioner; Visit Provider Internal Medicine Nephrology
DX: E55.9 Vitamin D deficiency, unspecified (principal); N18.31 Chronic kidney disease, stage 3a; D64.9 Anemia, unspecified; Z20.828 Contact with and (suspected) exposure to other viral communicable diseases
CPT/HCPCS: 36415; 80069; 81001; 82306; 82570; 82728; 83970; 84156; 85027

== ENCOUNTER 2024-04-14 08:29 | Outpatient (CLI) | payer MEDICARE, SELFPAY ==
[2024-04-14 20:52] LABS: Basophils Absolute Auto 0.1 K/mm3 (0.0-0.1); Basophils Percent Auto 0.8 % (0.2-1.2); Eosinophils Absolute Auto 0.2 K/mm3 (0-0.3); Eosinophils Percent Auto 3.1 % (0-4.4); Hematocrit 40.6 % (37.0-47.0); Hemoglobin 13.4 g/dL (12.0-15.0); Immature Granulocyte Absolute 0.02 K/mm3 (0.00-0.031); Immature Granulocyte Percent A 0.3 % (0-0.5); Lymphocytes Absolute Auto 1.67 K/mm3 (0.9-3.2); Lymphocytes Percent Auto 26.2 % (18.3-44.2); Mean Corpuscular Hemoglobin 31.2 pg (26-34); Mean Corpuscular Volume 94.6 fl (80-100); Mean Platelet Volume 11.2 fl (7.4-10.4); Monocytes Absolute Auto 0.7 K/mm3 (0.1-0.6); Monocytes Percent Auto 10.2 % (2.6-8.5); Neutrophils Absolute Auto 3.8 K/mm3 (1.3-6.7); Neutrophils Percent Auto 59.4 % (45.5-73.1); Platelet Count Result 293 k/mm3 (150-375); Red Blood Count 4.29 M/mm3 (4.2-5.4); Red Cell Distribution Width 12.9 % (11.5-14.5); White Blood Count 6.4 K/mm3 (4.5-10.0)
[2024-04-14 21:16] LABS: Immunoglobulin A 195 mg/dL (70-400); Immunoglobulin G 1182 mg/dL (700-1600); Immunoglobulin M 35 mg/dL (40-230)
[2024-04-14 21:24] LABS: Alanine Aminotransferase 17 U/L (6-35); Albumin Level 3.6 g/dL (3.5-5.1); Alkaline Phosphatase 63 U/L (38-126); Anion Gap 7 mmol/L (4-12); Aspartate Amino Transferase 32 U/L (14-36); Bilirubin,Total 0.8 mg/dL (0.2-1.3); Blood Urea Nitrogen 14 mg/dL (7-17); Calcium 8.6 mg/dL (8.4-10.2); Carbon Dioxide 31 mmol/L (22-30); Chloride 101 mmol/L (98-107); Estimated Glomerular Filt Rate 48; Glucose 82 mg/dL (65-110); Potassium 3.9 mmol/L (3.4-5.0); Sodium 139 mmol/L (137-145)
[2024-04-15 16:07] LABS: Protein, Total 6.3 g/dL (6.1-8.1)
[2024-04-16 15:17] LABS: Kappa\\Lambda Light Chains 0.15 (0.26-1.65); Lambda Light Chain 94.6 mg/L (5.7-26.3)
[2024-04-16 16:59] LABS: Abnormal Protein Band 1 1.2 g/dL (NONE DETECTED); Albumin 3.3 g/dL (3.8-4.8); Alpha 1 Globulin 0.3 g/dL (0.2-0.3); Alpha 2 Globulin 0.7 g/dL (0.5-0.9); Beta 1 Globulin 1.4 g/dL (0.4-0.6); Gamma Globulin 0.3 g/dL (0.8-1.7)
== END 2024-04-14 08:30 | disposition home or self-care (01) ==
PROVIDERS: PCP Nurse Practitioner; Visit Provider Internal Medicine Hematology & Oncology
DX: D47.2 Monoclonal gammopathy (principal)
CPT/HCPCS: 36415; 80053; 82784; 83883; 84155; 84165; 85025

== ENCOUNTER 2024-09-13 10:12 | Outpatient (CLI) | payer MEDICARE, SELFPAY ==
[2024-09-13 11:23] LABS: Hematocrit 39.1 % (37.0-47.0); Hemoglobin 12.6 g/dL (12.0-15.0); Mean Corpuscular HGB Conc 32.2 g/dl (32-36); Mean Corpuscular Hemoglobin 30.1 pg (26-34); Mean Corpuscular Volume 93.3 fl (80-100); Mean Platelet Volume 10.7 fl (7.4-10.4); Platelet Count Result 292 k/mm3 (150-375); Red Blood Count 4.19 M/mm3 (4.2-5.4); Red Cell Distribution Width 13.1 % (11.5-14.5); White Blood Count 8.7 K/mm3 (4.5-10.0)
--- OUTSIDE RECORDS SUMMARY | 2024-09-13 11:28 | XMS_ITS | Clinical Summary ---
Author Organization [facility] [employer] Address [address] [place] [address] Care Team Providers Care Liberal Arts Teacher Name Role Phone Unavailable Primary Care Provider Unavailabl e Source Comments [facility],non-owned Affiliates and Associated Physician Practices is amultiple site organization consisting of ambulatory clinics and hospital sitesin [place], [place], [place] and [place]. This disclosure is being madepursuant to the Care Everywhere program and may not contain all information available regarding this patient. Last updated 18.[facility] [employer] Social History Tobacco Use Types Packs/Day Years Used Date Smoking Tobacco: Never Assessed Sex and Gender Information Value Date Recorded Sex Assigned at Not on file Gender Identity Not on file Sexual Orientation Not on file Plan of Treatment Health Maintenance Due Date Last Done Comments BONE DENSITY TESTING 1940 DTAP/TDAP/TD VACCINES (1 - Tdap) 1960 PNEUMOCOCCAL VACCINE 50+ (1 of 1 - PCV) 11/23/1991 ZOSTER VACCINE (1 of 2) 11/23/1991 Respiratory Syncytial Virus (RSV) Vaccine Pt: or over 60 yrs (1 - 1-dose 75+ series) 2016 COVID-19 VACCINE (2023-2 5 season) 2024 INFLUENZA VACCINE (#1) 2024 DEPRESSION SCREENING 06/09/2024 MEDICARE AWV CALENDAR YEAR 2024 HEPATITIS B VACCINE Aged Out No longe r eligible based on patient's age to complete this topic HIB VACCINE Aged Out No longer eligi ble based on patient's age to complete this topic HPV VACCINE Aged Out No longer eligi ble based on patient's age to complete this topic MENINGOCOCCAL (Group B) VACC INE SHARED DECISION-MAKING Aged Out No longer eligibl e based on patient's age to complete this topic MENINGOCOCCAL GROUPS A/C/Y/W VACCINE Aged Out No longer eligible b ased on patient's age to complete this topic
--- OUTSIDE RECORDS SUMMARY | 2024-09-13 11:28 | XMS_ITS | Clinical Summary ---
Author Organization [facility] Address [address] [place] [id number] Phone Care Team Providers Care Lumber Racker Name Role Phone KassyJovani chung Primary Care Provider [phone] Allergies No known active allergies Medications Medication Sig Dispensed Refills Start Date End Date Status losartan (COZAAR) 50 MG tablet Take 50 mg by mouth 1 (one) time each day 04/23/2021 Active pantoprazole (PROTONIX) 40 MG EC tablet Take 40 mg by mouth 1 (one) time each day 03/18/2021 Active Active Problems Problem Noted Date Diagnosed Date Monoclonal gammopathy of uncertain significance 07/30/2021 Chronic kidney disease stage 3A 05/14/2021 Essential hypertension 05/14/2021 Gastroesophageal reflux disease 05/14/2021 Immunizations Name Administration Dates Next Due Influenza TIV (IM) 02/05/2022 Pneumococcal Polysaccharide 07/10/2021 Td 02/05/2022 Family History Medical History Relation Comments Kidney disease Neg Hx Social History Tobacco Use Types Packs/Day Years Used Date Smoking Tobacco: Never Smokeless Tobacco: Never Alcohol Use Standard Drinks/Week Comments Yes 0 (1 standard drink = 0.6 oz pur e alcohol) Sex and Gender Information Value Date Recorded Sex Assigned at Not on file Gender Identity Not on file Sexual Orientation Not on file Last Filed Vital Signs Vital Sign Reading Time Taken Comments Blood Pressure 124/78 03/11/2022 1:38 PM CDT Pulse 72 03/11/2022 1:38 PM CDT Temperature 36.1 C (97 F) 03/11/2022 1:38 PM CDT Respiratory Rate - - Oxygen Saturation - - Inhaled Oxygen Concentration - - Weight 53.5 kg (118 lb) 03/11/2022 1:38 PM CDT Height 152.4 cm (5') 03/11/2022 1:38 PM CDT Body Mass Index 23.05 03/11/2022 1:38 PM CDT Plan of Treatment Health Maintenance Due Date Last Done Comments Pneumococcal PPSV23/PCV13 65 + Years / Low and Medium Risk (2 of 3 - PCV) 07/10/2022 07/10/2021 Influenza Vaccine (Season Ended) 2025 02/06/20 22 Care Teams Lumber Racker Relationship Specialty Start Date End Date Jovani Mcghee DO [address] [place] [address] PCP - General Internal Medicine 03/20/21
--- OUTSIDE RECORDS SUMMARY | 2024-09-13 11:28 | XMS_ITS | Clinical Summary ---
Author Organization [facility] Address [address] [place] [address] Care Team Providers Care Body Team Member Name Role Phone Jovani Mcghee DO Primary Care Provider Allergies No known active allergies Medications losartan (COZAAR) 50 mg tablet Take 50 mg by mouth daily. 04/23/2021 Active pantoprazole (PROTONIX) 40 mg Tablet, Delayed Release (E.C.) Take 40 mg by mouth daily. 03/18/2021 Active Active Problems Problem Noted Date Diagnosed Date MGUS (monoclonal gammopathy of unknown significa nce) 07/30/2021 Encounters Date Type Department Care Team Description 07/28/2024 External Device Data ST[facility] ABSTRACTION Provider, Abstract 07/07/2024 External Device Data [facility] ABSTRACTION Provider, Abstract 07/01/2024 External Device Data [facility] ABSTRACTION Provider, Abstract from Last 3 Months Family History Medical History Relation Name Comments Heart Attack Father Prostate Cancer Father Kidney Cancer Sister 2 Relation Name Status Comments Brother Alive Daughter Alive Father Mother Sister 1 Alive Sister 2 Son Alive Social History Tobacco Use Types Packs/Day Years Used Date Smoking Tobacco: Never Smokeless Tobacco: Never Tobacco Cessation:Counseling Given: Not Answered Alcohol Use Standard Drinks/Week Comments Not Currently 0 (1 standard drink = 0.6 oz pur e alcohol) Comments Unknown Sex and Gender Information Value Date Recorded Sex Assigned at Female 04/18/2023 1:40 PM MANAGER FIELD INVESTIGATIONS Legal Sex Female 8:58 AM MANAGER FIELD INVESTIGATIONS Gender Identity Female 04/18/2023 1:40 PM MANAGER FIELD INVESTIGATIONS Sexual Orientation Choose not to disclose 2022 1:40 PM MANAGER FIELD INVESTIGATIONS Last Filed Vital Signs Vital Sign Reading Time Taken Comments Blood Pressure 108/68 04/27/2024 9:54 AM MANAGER FIELD INVESTIGATIONS Pulse 88 04/27/2024 9:52 AM MANAGER FIELD INVESTIGATIONS Temperature 36.6 C (97.8 F) 04/27/2024 9:52 AM MANAGER FIELD INVESTIGATIONS Respiratory Rate 15 04/27/2024 9:52 AM MANAGER FIELD INVESTIGATIONS Oxygen Saturation 96% 04/27/2024 9:52 AM MANAGER FIELD INVESTIGATIONS Inhaled Oxygen Concentration - - Weight 53 kg (116 lb 12.8 oz) 04/27/2024 9:52 AM MANAGER FIELD INVESTIGATIONS Height 152.4 cm (5') 12/04/2021 3:22 PM CDT Body Mass Index 22.81 12/04/2021 3:22 PM CDT Plan of Treatment Upcoming Encounters Date Type Department Care Team (Late st Contact Info) Description 04/28/2025 10:00 AM MANAGER FIELD INVESTIGATIONS Office Visit [facility] - [place] [address] [facility] [address] [place] [address] Jean Ramirez MD [address] [facility] [address] [place] [address] Health Maintenance Due Date Last Done Comments DTAP/TDAP/TD VACCINES (1 - Tdap) 1960 ZOSTER VACCINE (1 of 2) 11/23/1991 OSTEOPOROSIS SCREENING 2006 RSV VACCINE (60+ or ) (1 - 1-dose 75+ series) 2016 PNEUMOCOCCAL VACCINE 50+ YEA RS (2 of 2 - PCV) 07/10/2022 07/10/2021 INFLUENZA VACCINE Completed 02/22/2024, , 06/22/2021 Insurance [facility] [id number] Care Teams Body Team Member Relationship Specialty Start Date End Date Jovani Mcghee DO [address] [address] PCP - General Internal Medicine 07/30/21
[2024-09-13 12:15] LABS: Ferritin 5.08 ng/mL (11.1-264); Vitamin D 25 Hydroxy 69.7 ng/mL
[2024-09-13 12:27] LABS: Creatinine Urine 16.4 mg/dL; Total Protein Urine Random 20 mg/dL; Ur Ttl Prot Creatinine Ratio 1.22 mg/mg (0-0.20)
[2024-09-13 12:51] LABS: Parathyroid Intact 19.8 pg/mL (14.5-75.2)
[2024-09-13 13:08] LABS: Albumin Level 3.7 g/dL (3.5-5.1); Anion Gap 8 mmol/L (4-12); Blood Urea Nitrogen 20 mg/dL (7-17); Calcium 8.5 mg/dL (8.4-10.2); Carbon Dioxide 29 mmol/L (22-30); Chloride 99 mmol/L (98-107); Estimated Glomerular Filt Rate 46; Glucose 80 mg/dL (65-110); Phosphorus 4.3 mg/dL (2.5-4.5); Potassium 4.2 mmol/L (3.4-5.0); Sodium 136 mmol/L (137-145)
== END 2024-09-13 10:13 | disposition home or self-care (01) ==
PROVIDERS: PCP Nurse Practitioner; Visit Provider Internal Medicine Nephrology
DX: N18.31 Chronic kidney disease, stage 3a (principal); E55.9 Vitamin D deficiency, unspecified; D64.9 Anemia, unspecified
CPT/HCPCS: 36415; 80069; 82306; 82570; 82728; 83970; 84156; 85027

== ENCOUNTER 2025-03-14 09:38 | Outpatient (CLI) | payer MEDICARE, SELFPAY ==
--- OUTSIDE RECORDS SUMMARY | 2025-03-14 10:32 | XMS_ITS | Clinical Summary ---
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
--- OUTSIDE RECORDS SUMMARY | 2025-03-14 10:32 | XMS_ITS | Clinical Summary ---
Author Organization [facility]ello Address [address] [place] [address] Care Team Providers Care County Agricultural Agent Name Role Phone Jovani Mcghee DO Primary [...] Encounters Date Type Department Care Team Description 02/08/2025 External Device Data [facility] ABSTRACTION Provider, Abstract 01/26/2025 External Device Data [facility] ABSTRACTION Provider, Abstract 01/12/2025 External Device Data [facility] ABSTRACTION Provider, Abstract 12/22/2024 External Device Data [facility] ABSTRACTION Provider, Abstract 12/22/2024 External Device Data [facility] ABSTRACTION Provider, Abstract 12/22/2024 External Device Data [facility] ABSTRACTION Provider, Abstract [...] Sex Assigned at Female 04/18/2023 1:40 PM COMPUTER DISCOVERY TEACHER Legal Sex Female 8:58 AM COMPUTER DISCOVERY TEACHER Gender Identity Female 04/18/2023 1:40 PM COMPUTER DISCOVERY TEACHER Sexual Orientation Choose not to disclose 2022 1:40 PM COMPUTER DISCOVERY TEACHER Last Filed Vital Signs Vital Sign Reading Time Taken Comments Blood Pressure 108/68 04/27/2024 9:54 AM COMPUTER DISCOVERY TEACHER Pulse 88 04/27/2024 9:52 AM COMPUTER DISCOVERY TEACHER Temperature 36.6 C (97.8 F) 04/27/2024 9:52 AM COMPUTER DISCOVERY TEACHER Respiratory Rate 15 04/27/2024 9:52 AM COMPUTER DISCOVERY TEACHER Oxygen Saturation 96% 04/27/2024 9:52 AM COMPUTER DISCOVERY TEACHER Inhaled Oxygen Concentration - - Weight 53 kg (116 lb 12.8 oz) 04/27/2024 9:52 AM COMPUTER DISCOVERY TEACHER Height 152.4 cm (5') 12/04/2021 3:22 PM CDT Body Mass Index 22.81 12/04/2021 3:22 PM CDT Plan of Treatment Upcoming Encounters Date Type Department Care Team (Late st Contact Info) Description 04/28/2025 10:00 AM COMPUTER DISCOVERY TEACHER Office Visit [facility] Oncology and Hematology - [place] [address] [place] [address] [address] [place] [address] Jean Ramirez MD [address] [facility] [address] [place] [address] Health Maintenance Due Date Last Done Comments DTAP/TDAP/TD VACCINES (1 - Tdap) 1960 ZOSTER VACCINE (1 of 2) 11/23/1991 OSTEOPOROSIS SCREENING 2006 RSV VACCINE (60+ or ) (1 - 1-dose 75+ series) 2016 PNEUMOCOCCAL VACCINE 50+ YEA RS (2 of 2 - PCV) 07/10/2022 07/10/2021 INFLUENZA VACCINE (#1) 2025 , 02/05/2022, 06/22/2021 Insurance [facility] [id number] Care Teams County Agricultural Agent Relationship Specialty Start Date End Date Jovani Mcghee DO [address] [facility] [address] [place] [address] PCP - General Internal Medicine 07/30/21
[2025-03-14 12:52] LABS: Hematocrit 41.4 % (37.0-47.0); Hemoglobin 13.1 g/dL (12.0-15.0); Mean Corpuscular HGB Conc 31.6 g/dl (32-36); Mean Corpuscular Hemoglobin 30.1 pg (26-34); Mean Corpuscular Volume 95.2 fl (80-100); Platelet Count Result 338 k/mm3 (150-375); Red Blood Count 4.35 M/mm3 (4.2-5.4); White Blood Count 6.4 K/mm3 (4.5-10.0)
[2025-03-14 13:03] LABS: Albumin Level 3.6 g/dL (3.5-5.1); Anion Gap 7 mmol/L (4-12); Blood Urea Nitrogen 15 mg/dL (7-17); Calcium 9.0 mg/dL (8.4-10.2); Carbon Dioxide 30 mmol/L (22-30); Chloride 103 mmol/L (98-107); Estimated Glomerular Filt Rate 41; Glucose 78 mg/dL (65-110); Potassium 4.4 mmol/L (3.4-5.0); Sodium 140 mmol/L (137-145)
[2025-03-14 13:11] LABS: Total Protein Urine Random 19 mg/dL; Ur Ttl Prot Creatinine Ratio 0.28 mg/mg (0-0.20)
[2025-03-14 13:14] LABS: Parathyroid Intact < 14.5 pg/mL (14.5-75.2)
== END 2025-03-14 09:39 | disposition home or self-care (01) ==
LOC: ANHGOSHLAB 09:39
PROVIDERS: PCP Nurse Practitioner; Visit Provider Internal Medicine Nephrology
DX: I12.9 Hypertensive chronic kidney disease with stage 1 through stage 4 chronic kidney disease, or unspecified chronic kidney disease (principal); N18.31 Chronic kidney disease, stage 3a
CPT/HCPCS: 36415; 80069; 82570; 83970; 84156; 85027

== ENCOUNTER 2025-04-18 08:59 | Outpatient (CLI) | payer MEDICARE, SELFPAY ==
--- OUTSIDE RECORDS SUMMARY | 2025-04-18 09:26 | XMS_ITS | Clinical Summary ---
Author Organization [facility] Address [address] [place] [address] Phone Care Team Providers Care Knife Blade Polisher Name Role Phone Jovani Mcghee DO Primary Care Provider [phone] Allergies No known active allergies Medications losartan [...] 02/05/2022 Insurance [employer] MED[employer]ARE Care Teams Knife Blade Polisher Relationship Specialty Start Date End Date Jovani Mcghee DO [address] [place] [address] PCP - General Internal Medicine 03/20/21
--- OUTSIDE RECORDS SUMMARY | 2025-04-18 09:26 | XMS_ITS | Clinical Summary ---
Author Organization [facility] Address [address] [place] [address] Care Team Providers Care Patients Transporter Name Role Phone Jovani Mcghee DO Primary [...] Encounters Date Type Department Care Team Description 04/06/2025 External Device Data STL ABSTRACTION Provider, Abstract 04/06/2025 External Device Data [facility] ABSTRACTION Provider, Abstract 03/29/2025 External Device Data [facility] ABSTRACTION Provider, Abstract 02/08/2025 External Device Data STL ABSTRACTION Provider, [...] Sex Assigned at Female 04/18/2023 1:40 PM TRADEMARK PARALEGAL Legal Sex Female 8:58 AM TRADEMARK PARALEGAL Gender Identity Female 04/18/2023 1:40 PM TRADEMARK PARALEGAL Sexual Orientation Choose not to disclose 2022 1:40 PM TRADEMARK PARALEGAL Last Filed Vital Signs Vital Sign Reading Time Taken Comments Blood Pressure 108/68 04/27/2024 9:54 AM TRADEMARK PARALEGAL Pulse 88 04/27/2024 9:52 AM TRADEMARK PARALEGAL Temperature 36.6 C (97.8 F) 04/27/2024 9:52 AM TRADEMARK PARALEGAL Respiratory Rate 15 04/27/2024 9:52 AM TRADEMARK PARALEGAL Oxygen Saturation 96% 04/27/2024 9:52 AM TRADEMARK PARALEGAL Inhaled Oxygen Concentration - - Weight 53 kg (116 lb 12.8 oz) 04/27/2024 9:52 AM TRADEMARK PARALEGAL Height 152.4 cm (5') 12/04/2021 3:22 PM CDT Body Mass Index 22.81 12/04/2021 3:22 PM CDT Plan of Treatment Upcoming Encounters Date Type Department Care Team (Late st Contact Info) Description 04/28/2025 10:00 AM TRADEMARK PARALEGAL Office Visit [facility] Oncology and Hematology - [place] [address] [facility] [address] [place] [address] Jean Ramirez MD [address] [facility] [address] [place] [address] Health Maintenance Due Date Last Done Comments DTAP/TDAP/TD VACCINES (1 - Tdap) 1960 ZOSTER VACCINE (1 of 2) 11/23/1991 OSTEOPOROSIS SCREENING 2006 RSV VACCINE (60+ or ) (1 - 1-dose 75+ series) 2016 PNEUMOCOCCAL VACCINE 50+ YEA RS (2 of 2 - PCV) 07/10/2022 07/10/2021 INFLUENZA VACCINE (#1) 2025 4, 02/05/2022, 06/22/2021 Insurance [facility] [id number] Care Teams Patients Transporter Relationship Specialty Start Date End Date Jovani Mcghee DO [facility] [address] [address] PCP - General Internal Medicine 07/30/21
--- OUTSIDE RECORDS SUMMARY | 2025-04-18 09:26 | XMS_ITS | Clinical Summary ---
Author Organization [facility] [employer] Address [address] [place] [address] Care Team Providers Care Golf Club Manager Name Role Phone Unavailable Primary Care Provider Unavailabl e Source Comments [facility],non-owned Affiliates and Associated Physician Practices is amultiple site organization consisting of ambulatory clinics and hospital sitesin [place], [place], [place] and [place]. This disclosure is being madepursuant to the Care Everywhere program and may not contain all information available regarding this patient. Last updated 18.[facility] [employer] Social History Tobacco Use Types Packs/Day Years Used Date Smoking Tobacco: Never Assessed Comments Unknown Sex and Gender Information Value Date Recorded Sex Assigned at Not on file Legal Sex Female 10:48 AM CDT Gender Identity Not on file Sexual Orientation Not on file Plan of Treatment Health Maintenance Due Date Last Done Comments BONE DENSITY TESTING 1941 DTAP/TDAP/TD VACCINES (1 - Tdap) 1960 PNEUMOCOCCAL VACCINE 50+ (1 of 1 - PCV) 11/23/1991 ZOSTER VACCINE (1 of 2) 11/23/1991 Respiratory Syncytial Virus (RSV) Vaccine Pt: or over 60 yrs (1 - 1-dose 75+ series) 2016 DEPRESSION SCREENING 06/09/2024 COVID-19 VACCINE ( - 2023-2 5 season) 2025 INFLUENZA VACCINE (#1) 2025 HEPATITIS B VACCINE Aged Out No longe [...] on patient's age to complete this topic Insurance [employer] MANAGED MEDICARE ADV [employer] MEDICARE
[2025-04-18 13:16] LABS: Immunoglobulin A 154 mg/dL (70-400); Immunoglobulin G 1300 mg/dL (700-1600); Immunoglobulin M 29 mg/dL (40-230)
[2025-04-19 15:09] LABS: Albumin 2.9 g/dL (2.9-4.4); Alpha-1-Globulin 0.3 g/dL (0.0-0.4); Alpha-2-Globulin 0.7 g/dL (0.4-1.0); Free Lambda Lt Chains, Serum 134.7 mg/L (5.7-26.3); Gamma Globulin 0.4 g/dL (0.4-1.8); Kappa/Lambda Ratio, Serum 0.10 (0.26-1.65)
== END 2025-04-18 09:00 | disposition home or self-care (01) ==
PROVIDERS: PCP Nurse Practitioner; Visit Provider Internal Medicine Hematology & Oncology
DX: D47.2 Monoclonal gammopathy (principal)
CPT/HCPCS: 36415; 82784; 83521; 84155; 84165